=== PATIENT | male | born 1975 | race Caucasian/White ===

== ENCOUNTER → 2016-07-08 | Outpatient (REF) | payer OTHER ==
[2016-07-09 14:26] LABS: HIV SCRN NEGATIVE (NEGATIVE); HIV SCRN1 NEGATIVE (NEGATIVE)
[2016-07-09 14:27] LABS: CONTROL LINE INT CTR LINE PRESENT
== END ==
LOC: M SFHCPLAZ 13:17
PROVIDERS: ATTEND Family Medicine
DX: Z72.51 High risk heterosexual behavior (principal)

== ENCOUNTER → 2016-09-13 | Day surgery (SDC) | payer BC, OTHER ==
[~2016-09-13] VITALS: Ht 185.4 cm; Wt 113.4 kg
[~2016-09-13] MED LIST: BUPIVACAINE HCL 0.25% 30 ML VIAL As Ordered ONE; LIDOCAINE 1% SDV INJ 30 ML VIAL As Ordered ONE; LIDOCAINE 2% INJ 100 MG/5 ML SDV (FOR ANES.) As Ordered ONE; LR 1,000 ML IV ONE; LR 1,000 ML IV SCH; METOCLOPRAMIDE INJ 10MG/2ML VIAL (J2765) IV PRN; MIDAZOLAM INJ 2 MG/2 ML VIAL (J2250) As Ordered ONE; MOBI15TA PO; NORCO, ANEXSIA 5/325MG TABLET (HYDROcodone/ACETAMINOPHEN) PO PRN; ONDANSETRON 4MG/2ML VIAL (J2405) IV PRN; PANT1POW XX; PROPOFOL 200 MG/20 ML VIAL As Ordered ONE; ROCURONIUM BROMIDE 50 MG/5 ML VIAL As Ordered ONE; dexameTHASONE 4 MG/ML 1ML VIAL (J1100) As Ordered ONE; fentaNYL 100 MCG/2 ML INJECTION (J3010) As Ordered ONE; fentaNYL 100 MCG/2 ML INJECTION (J3010) IV PRN
[2016-09-13] MEDS: PERCOCET 5MG/325MG TAB PO PRN ×2 (13:55→14:25)
[2016-09-13 16:05] VITALS: BP 177/90
--- NOTE | 2016-09-15 14:24 | RO ---
DATE OF PROCEDURE: 09/13/2016 PREOPERATIVE DIAGNOSIS: Left inguinal hernia. POSTOPERATIVE DIAGNOSIS: Left inguinal hernia. PROCEDURE PERFORMED: Left inguinal herniorrhaphy with ultra Pro mesh. SURGEON: Dr. Naga Calzada GRIP WRAPPER: Pritesh Mendez MS III ANESTHESIA: General. INDICATIONS FOR PROCEDURE: The patient is a 41-year-old man who has noticed a small bulge in the left inguinal area with some discomfort. He is now for a left inguinal herniorrhaphy. OPERATIVE PROCEDURE: The patient was placed under general endotracheal anesthesia. The patient's lower abdomen, groins and genitalia were prepped and draped in a sterile fashion. An approximately 10 cm oblique left lower quadrant skin incision was made over the course of the inguinal canal. The incision was deepened through the subcutaneous tissues. The external oblique was exposed and then opened in the direction of its fibers into the external ring. The spermatic cord was elevated at the pubic tubercle with a [place] drain. Dissection revealed a moderately large direct hernia just medial to the internal ring. A bulge of fat about 3-4 cm in diameter protruded through this hernia. He was also found to have a protrusion of some preperitoneal fat along the spermatic cord. The preperitoneal fat was dissected free from the cord and ligated at its neck and excised. The direct hernia bulge was reduced beneath the fascia and the defect was closed with several interrupted simple sutures of #2-0 Ethibond. A 6 x 11 cm piece of ultra Pro mesh was then selected. This was trimmed to fit over the inguinal floor. The lateral border was sutured with a #3-0 Prolene to the shelving edge of the inguinal ligament. Medially, the mesh was tacked down with interrupted simple sutures of #3-0 Vicryl. The tails of the mesh were overlapped lateral to the spermatic cord and sutured with #3-0 Vicryl. This appeared to give a nice reconstruction of the inguinal floor. Approximately 10 mL of 0.25% Marcaine were infiltrated into the inguinal floor. The external oblique was closed with a running #0 Vicryl. The subcutaneous tissues were closed with chromic. Additional 0.25% Marcaine was infiltrated along the skin edges. The skin edges were then approximated with a running subcuticular #4-0 Vicryl and Steri-Strips. A light dressing was applied. The patient was awakened in the operating room, extubated and moved to the recovery room in stable condition. CRISELDA
== END | disposition home or self-care (01) ==
LOC: M SDC 08:48
PROVIDERS: ATTEND Surgery
DX: K40.90 Unilateral inguinal hernia, without obstruction or gangrene, not specified as recurrent (principal); K21.9 Gastro-esophageal reflux disease without esophagitis; F17.228 Nicotine dependence, chewing tobacco, with other nicotine-induced disorders; G47.33 Obstructive sleep apnea (adult) (pediatric); M15.0 Primary generalized (osteo)arthritis; A60.00 Herpesviral infection of urogenital system, unspecified; Z88.5 Allergy status to narcotic agent; Z79.899 Other long term (current) drug therapy
CPT/HCPCS: 49505; 88302; C1781; J1100; J2250; J3010

== ENCOUNTER → 2017-07-01 | Outpatient (REF) | payer OTHER ==
[2017-07-01 14:14] LABS: HEMATOCRIT 48.2 % (42.0-52.0); MEAN CORPUSCULAR HGB CONC 33.2 g/dl (32.0-36.5); MEAN CORPUSCULAR VOLUME 90.4 fl (80.0-96.0); PLATELET COUNT, AUTOMATED 263 10^3/uL (150-450); RED BLOOD COUNT 5.33 10^6/uL (4.30-6.10); RED CELL DISTRIBUTION WIDTH 12.5 % (11.5-14.5); WHITE BLOOD COUNT 7.3 10^3/uL (4.0-10.0)
[2017-07-01 14:21] LABS: ALBUMIN 4.2 GM/DL (3.2-5.2); ALBUMIN/GLOBULIN RATIO 1.45 (1.00-1.93); ALKALINE PHOSPHATASE 94 U/L (45-117); ALT/SGPT 56 U/L (12-78); ANION GAP 7 MEQ/L (8-16); AST/SGOT 25 U/L (7-37); BILIRUBIN,TOTAL 0.6 MG/DL (0.2-1.0); BLOOD UREA NITROGEN 16 MG/DL (7-18); CALCIUM LEVEL 8.9 MG/DL (8.5-10.1); CARBON DIOXIDE LEVEL 31 MEQ/L (21-32); CHLORIDE LEVEL 107 MEQ/L (98-107); CHOLESTEROL LEVEL 176 MG/DL (<200); CHOLESTEROL RISK RATIO 5.677 (<5); CREATININE FOR GFR 0.98 MG/DL (0.70-1.30); GLOMERULAR FILTRATION RATE > 60.0 (>60); GLUCOSE, FASTING 83 MG/DL (70-100); HDL CHOLESTEROL 31 MG/DL (>40); NON-HDL-C 145 MG/DL; POTASSIUM SERUM 4.3 MEQ/L (3.5-5.1); SODIUM LEVEL 145 MEQ/L (136-145); TOTAL PROTEIN 7.1 GM/DL (6.4-8.2); TRIGLYCERIDES LEVEL 200 MG/DL (<150)
== END ==
LOC: M SFHCPLAZ 13:52
DX: K21.9 Gastro-esophageal reflux disease without esophagitis (principal); G47.33 Obstructive sleep apnea (adult) (pediatric); E78.6 Lipoprotein deficiency

== ENCOUNTER → 2017-08-01 | Outpatient (CLI) | payer BC, OTHER | LOC: M LRY 11:42 | DX: R05 Cough (principal) | CPT/HCPCS: 71046 ==

== ENCOUNTER → 2017-08-01 | Outpatient (CLI) | payer BC, OTHER | LOC: M LRY 11:36 | DX: M25.511 Pain in right shoulder (principal) | CPT/HCPCS: 73030 ==

== ENCOUNTER 2017-10-04 17:20 | Emergency (ER) | payer BC, OTHER ==
[2017-10-04] MEDS ORDERED: NORCO, ANEXSIA 5/325MG TABLET (HYDROcodone/ACETAMINOPHEN) PO (19:30)
[2017-10-04] MEDS: IBUPROFEN 600 MG TAB PO (19:30)
== END 2017-10-04 19:41 | disposition home or self-care (01) ==
LOC: M ED 17:20
DX: S93.401A Sprain of unspecified ligament of right ankle, initial encounter (principal); S90.31XA Contusion of right foot, initial encounter; W22.8XXA Striking against or struck by other objects, initial encounter; Y92.096 Garden or yard of other non-institutional residence as the place of occurrence of the external cause; K21.9 Gastro-esophageal reflux disease without esophagitis; G47.33 Obstructive sleep apnea (adult) (pediatric); Z87.891 Personal history of nicotine dependence; Z88.5 Allergy status to narcotic agent; Z79.899 Other long term (current) drug therapy
CPT/HCPCS: 73610

== ENCOUNTER → 2018-02-02 | Outpatient (REF) | payer OTHER ==
[2018-02-02 13:56] LABS: FOLATE 12.9 NG/ML
== END ==
LOC: M SFHCPLAZ 11:30
DX: R20.2 Paresthesia of skin (principal)

== ENCOUNTER → 2018-10-12 | Outpatient (REF) | payer OTHER ==
[~2018-10-12] MED LIST changes: -BUPIVACAINE HCL 0.25% 30 ML VIAL As Ordered ONE; -LIDOCAINE 1% SDV INJ 30 ML VIAL As Ordered ONE; -LIDOCAINE 2% INJ 100 MG/5 ML SDV (FOR ANES.) As Ordered ONE; -LR 1,000 ML IV ONE; -LR 1,000 ML IV SCH; -METOCLOPRAMIDE INJ 10MG/2ML VIAL (J2765) IV PRN; -MIDAZOLAM INJ 2 MG/2 ML VIAL (J2250) As Ordered ONE; +NORC1TAB7 PO; -NORCO, ANEXSIA 5/325MG TABLET (HYDROcodone/ACETAMINOPHEN) PO PRN; -ONDANSETRON 4MG/2ML VIAL (J2405) IV PRN; -PROPOFOL 200 MG/20 ML VIAL As Ordered ONE; -ROCURONIUM BROMIDE 50 MG/5 ML VIAL As Ordered ONE; -dexameTHASONE 4 MG/ML 1ML VIAL (J1100) As Ordered ONE; -fentaNYL 100 MCG/2 ML INJECTION (J3010) As Ordered ONE; -fentaNYL 100 MCG/2 ML INJECTION (J3010) IV PRN
[2018-10-12 16:23] LABS: HEMATOCRIT 48.4 % (42.0-52.0); MEAN CORPUSCULAR HEMOGLOBIN 30.9 pg (27.0-33.0); MEAN CORPUSCULAR HGB CONC 33.1 g/dl (32.0-36.5); MEAN CORPUSCULAR VOLUME 93.6 fl (80.0-96.0); PLATELET COUNT, AUTOMATED 282 10^3/uL (150-450); RED BLOOD COUNT 5.17 10^6/uL (4.30-6.10); WHITE BLOOD COUNT 8.4 10^3/uL (4.0-10.0)
[2018-10-12 16:31] LABS: ALT/SGPT 72 U/L (12-78); BILIRUBIN,TOTAL 0.5 MG/DL (0.2-1.0); BLOOD UREA NITROGEN 15 MG/DL (7-18); CARBON DIOXIDE LEVEL 29 MEQ/L (21-32); CHLORIDE LEVEL 107 MEQ/L (98-107); CHOLESTEROL LEVEL 197 MG/DL (<200); CHOLESTEROL RISK RATIO 6.566 (<5); GLOMERULAR FILTRATION RATE > 60.0 (>60); GLUCOSE, FASTING 75 MG/DL (70-100); HDL CHOLESTEROL 30 MG/DL (>40); LDL CHOLESTEROL 103 MG/DL (<100); NON-HDL-C 167 MG/DL; POTASSIUM SERUM 4.1 MEQ/L (3.5-5.1); SODIUM LEVEL 142 MEQ/L (136-145); TOTAL PROTEIN 7.1 GM/DL (6.4-8.2); TRIGLYCERIDES LEVEL 321 MG/DL (<150)
== END ==
LOC: M SFHCPLAZ 12:43
PROVIDERS: ATTEND Family Medicine
DX: E78.6 Lipoprotein deficiency (principal); E78.1 Pure hyperglyceridemia; G47.33 Obstructive sleep apnea (adult) (pediatric); K21.9 Gastro-esophageal reflux disease without esophagitis

== ENCOUNTER → 2019-05-07 | Outpatient (CLI) | payer BC, OTHER ==
--- NOTE | 2019-05-07 11:48 | REP ---
HIGH-RESOLUTION SCROTAL SONOGRAPHY: HISTORY: Testicular mass. FINDINGS: Testicular parenchyma is homogeneous bilaterally. There is no sonographic evidence of intratesticular mass lesion. Right testis measures 5.0 x 2.5 x 3.0 cm. Left testicular dimensions are 4.9 x 2.3 x 3.0 cm. There is a 0.4 cm cyst in the head of the epididymis on the right which is felt to correspond with the area of abnormal palpation, according to the patient. There is no evidence of hydrocele on the right. A small hydrocele is noted on the left. Testicular Doppler flow is normal bilaterally. Resistive indices are 0.65 on the right and 0.63 on the left. IMPRESSION: Small cyst in the head of the right epididymis. Otherwise normal scrotal sonography. There is no ultrasound evidence of intratesticular mass. Electronically Signed by Sohan Kulkarni MD 05/07/2019 03:52 P
== END ==
LOC: M RAD 10:38
PROVIDERS: ATTEND Student in an Organized Health Care Education/Training Program
DX: N50.89 Other specified disorders of the male genital organs (principal); N50.3 Cyst of epididymis

== ENCOUNTER → 2019-11-18 | Outpatient (CLI) | payer BC, OTHER ==
--- NOTE | 2019-11-18 15:39 | REPPI ---
RIGHT CALCANEUS: Two views of the right calcaneus performed. No fracture or dislocation is seen. There is a posterior calcaneal spur having a length of approximately 7 mm. There is an inferior calcaneal spur having a length of about 9 mm. No other abnormalities are seen. IMPRESSION: Spurring of posterior and inferior calcaneus as discussed above. Electronically Signed by Familia Obrien MD 11/21/2019 11:44 P
--- NOTE | 2019-11-18 15:40 | REPPI ---
REASON: Foot pain. FINDINGS: The joint spaces are symmetric and relatively well maintained. There is no evidence of acute fracture or destructive osseous lesion. IMPRESSION: Negative. There are plantar and retrocalcaneal heel spurs. Electronically Signed by Tomas Roblero DO 11/18/2019 04:15 P
== END ==
LOC: M PLAIMG 12:28
PROVIDERS: ATTEND Family Medicine
DX: M79.671 Pain in right foot (principal)

== ENCOUNTER → 2020-04-04 | Outpatient (REF) | payer OTHER ==
[2020-04-04 17:48] LABS: BASO % 0.4 % (0.0-1.0); EOS # 0.6 10^3/uL (0.0-0.5); EOS % 5.4 % (0.0-3.0); HEMATOCRIT 49.8 % (42.0-52.0); HEMOGLOBIN 16.9 g/dl (13.5-17.5); LYMPH # 3.1 10^3/uL (1.5-5.0); MEAN CORPUSCULAR HEMOGLOBIN 30.5 pg (27.0-33.0); MEAN CORPUSCULAR HGB CONC 33.9 g/dl (32.0-36.5); MEAN CORPUSCULAR VOLUME 89.9 fl (80.0-96.0); MONO # 1.1 10^3/uL (0.0-0.8); MONO % 9.7 % (0.0-5.0); NEUTROPHILS # 6.5 10^3/uL (1.5-8.5); NEUTROPHILS % 57.1 % (36.0-66.0); PLATELET COUNT, AUTOMATED 298 10^3/uL (150-450); RED BLOOD COUNT 5.54 10^6/uL (4.30-6.10); WHITE BLOOD COUNT 11.4 10^3/uL (4.0-10.0)
[2020-04-04 18:27] LABS: ALBUMIN 3.9 GM/DL (3.2-5.2); ALT/SGPT 87 U/L (12-78); BILIRUBIN,TOTAL 0.6 MG/DL (0.2-1.0); BLOOD UREA NITROGEN 12 MG/DL (7-18); C REACTIVE PROTEIN QUANTITATIV 0.79 MG/DL (0.00-0.30); CARBON DIOXIDE LEVEL 25 MEQ/L (21-32); CHLORIDE LEVEL 108 MEQ/L (98-107); CREATININE FOR GFR 0.97 MG/DL (0.70-1.30); GLOMERULAR FILTRATION RATE > 60.0 (>60); GLUCOSE, FASTING 100 MG/DL (70-100); LIPASE 91 U/L (73-393); POTASSIUM SERUM 3.6 MEQ/L (3.5-5.1); SODIUM LEVEL 140 MEQ/L (136-145); TOTAL PROTEIN 7.3 GM/DL (6.4-8.2)
[2020-04-04 18:52] LABS: ERYTHROCYTE SEDIMENTATION RATE 3 mm/hr (0-15)
== END ==
LOC: M SFHCPLAZ 14:42
PROVIDERS: ATTEND Physician Assistant
DX: R10.84 Generalized abdominal pain (principal); R19.7 Diarrhea, unspecified; R14.0 Abdominal distension (gaseous)

== ENCOUNTER → 2020-04-04 | Outpatient (REF) | payer OTHER | LOC: M SFHCPLAZ 15:19 | PROVIDERS: ATTEND Physician Assistant | DX: R10.84 Generalized abdominal pain (principal); R19.7 Diarrhea, unspecified; R14.0 Abdominal distension (gaseous) ==

== ENCOUNTER → 2020-04-05 | Outpatient (CLI) | payer BC, OTHER ==
[~2020-04-05] MED LIST changes: +GASTROGRAFIN SOLUTION 30ML (Q9963) As Ordered ONE; +ISOVUE-370 76% 100ML VIAL As Ordered ONE
--- NOTE | 2020-04-05 16:46 | REP ---
INDICATION: GENERALIZED ABD PAIN, DIARRHEA. COMPARISON: 09/30/2005 TECHNIQUE: 100 cc Isovue 370 with oral bowel preparatory contrast administration FINDINGS: Curvilinear densities are seen in the antral basal segment of the left lower lobe likely subsegmental atelectatic changes. The liver and spleen are within normal limits. There is cholelithiasis. The pancreas, adrenal glands, and kidneys are within normal limits. The abdominal aorta and para-aortic regions are within normal limits. The bowel loops and the mesenteries are within normal limits. There is no free fluid or free air. There is no mass or adenopathy. The osseous structures are stable and intact. IMPRESSION: There is cholelithiasis. The examination is otherwise unremarkable and essentially unchanged from the prior exam. <Electronically signed by Tomas Roblero > 04/05/20 [id number]
== END ==
LOC: M RAD 14:23
PROVIDERS: ATTEND Physician Assistant
DX: R10.9 Unspecified abdominal pain (principal); R19.7 Diarrhea, unspecified

== ENCOUNTER 2020-04-16 18:00 | Emergency (ER) | payer BC, OTHER ==
[~2020-04-16] VITALS: Ht 185.4 cm; Wt 126.5 kg
[~2020-04-16 18:00] MED LIST changes: -GASTROGRAFIN SOLUTION 30ML (Q9963) As Ordered ONE; -ISOVUE-370 76% 100ML VIAL As Ordered ONE
[2020-04-16] MEDS ORDERED: PANT40TA29 PO (18:07)
[2020-04-16] MEDS ORDERED: ONDANSETRON 4MG/2ML VIAL IV ONE (18:30)
[2020-04-16] MEDS ORDERED: fentaNYL 100 MCG/2 ML INJECTION (J3010) IV ONE (18:30)
[2020-04-16] MEDS ORDERED: NS 1,000 ML IV ONE (18:30)
[2020-04-16 18:44] LABS: BASO # 0.1 10^3/uL (0.0-0.2); BASO % 0.5 % (0.0-1.0); EOS # 0.1 10^3/uL (0.0-0.5); EOS % 0.9 % (0.0-3.0); HEMATOCRIT 48.5 % (42.0-52.0); HEMOGLOBIN 16.3 g/dl (13.5-17.5); LYMPH # 3.1 10^3/uL (1.5-5.0); LYMPH % 25.7 % (24.0-44.0); MEAN CORPUSCULAR HEMOGLOBIN 29.4 pg (27.0-33.0); MEAN CORPUSCULAR HGB CONC 33.6 g/dl (32.0-36.5); MEAN CORPUSCULAR VOLUME 87.5 fl (80.0-96.0); MONO # 0.9 10^3/uL (0.0-0.8); MONO % 7.2 % (0.0-5.0); NEUTROPHILS # 7.9 10^3/uL (1.5-8.5); NEUTROPHILS % 65.3 % (36.0-66.0); PLATELET COUNT, AUTOMATED 297 10^3/uL (150-450); RED BLOOD COUNT 5.54 10^6/uL (4.30-6.10); WHITE BLOOD COUNT 12.1 10^3/uL (4.0-10.0)
[2020-04-16 19:03] LABS: ALBUMIN 3.9 GM/DL (3.2-5.2); ALT/SGPT 90 U/L (12-78); BILIRUBIN,DIRECT 0.1 MG/DL (0.0-0.2); BILIRUBIN,TOTAL 0.4 MG/DL (0.2-1.0); BLOOD UREA NITROGEN 8 MG/DL (7-18); CALCIUM LEVEL 9.2 MG/DL (8.5-10.1); CARBON DIOXIDE LEVEL 28 MEQ/L (21-32); CHLORIDE LEVEL 108 MEQ/L (98-107); CK-MB VALUE MASS 3.6 NG/ML (<3.6); CPK CREATINE PHOSPHOKINASE 264 U/L (39-308); CREATININE FOR GFR 0.94 MG/DL (0.70-1.30); GLOMERULAR FILTRATION RATE > 60.0 (>60); GLUCOSE, FASTING 114 MG/DL (70-100); LIPASE 86 U/L (73-393); MB/CK RELATIVE INDEX 1.36 (< OR =4); POTASSIUM SERUM 3.9 MEQ/L (3.5-5.1); SODIUM LEVEL 140 MEQ/L (136-145); TOTAL PROTEIN 7.4 GM/DL (6.4-8.2); TROPONIN I < 0.02 NG/ML (< 0.10)
--- NOTE | 2020-04-16 19:30 | REPVR ---
PROCEDURE INFORMATION: Exam: US Abdomen, Limited; Right Upper Quadrant Exam date and time: 04/16/2020 7:04 PM Age: 44 years old Clinical indication: Abdominal pain; Acute; Additional info: Ruq pain TECHNIQUE: Imaging protocol: US abdomen. Real time ultrasound with image documentation. Limited exam focused on the right upper quadrant. COMPARISON: CT ABD PELVIS WITH CONTRAST 04/05/2020 4:03 PM FINDINGS: Liver: The liver is diffusely echogenic relative to the right kidney, findings consistent with steatosis. Gallbladder: No definitive gallstone demonstrated however there is suggestion of a calculus on 1 image. Common bile duct: The common bile duct measures 5.5 mm. No mass or choledocholithiasis. Pancreas: Pancreas obscured by bowel gas. Right kidney: Right kidney measures 11.7 x 5.7 x 5.7 cm. IMPRESSION: 1. Hepatic steatosis. 2. No definitive gallstone demonstrated however there is suggestion of a calculus on 1 image. 3. Nonvisualized pancreas. Electronically signed by: Adolfo Melton On 04/16/2020 19:29:31 PM
[2020-04-16] MEDS ORDERED: NORC1TAB7 PO (19:48)
[2020-04-16 20:21] VITALS: BP 120/65
--- NOTE | 2020-04-17 05:34 | ECGEPIP ---
[facility] - ED Test Date: 2020-04-16 Pat Name: CHLOE STORM Department: Room: - Gender: Male Dining Service Inspector: rebecca : 1975 Requested By: TAE LOPEZ Order Number: [id number] Reading MD: Chandana Cheung Measurements Intervals [place] Rate: 56 P: 21 ME: 150 QRS: 25 QRSD: 84 T: 16 QT: 430 QTc: 417 Interpretive Statements SINUS BRADYCARDIA INCOMPLETE RIGHT BUNDLE BRANCH BLOCK NO PRIORS FOR COMPARISON Electronically Signed on 04-17-2020 5:33:54 EST by Chandana Cheung
== END 2020-04-16 20:25 | disposition home or self-care (01) ==
LOC: M ED 18:00
DX: K80.50 Calculus of bile duct without cholangitis or cholecystitis without obstruction (principal); R00.1 Bradycardia, unspecified; I45.19 Other right bundle-branch block; K21.9 Gastro-esophageal reflux disease without esophagitis; K76.0 Fatty (change of) liver, not elsewhere classified; Z88.5 Allergy status to narcotic agent
CPT/HCPCS: 76705; 80048; 80076; 82550; 82553; 83690; 84484; 85025; 93005; 93041; 96361; 96374; 96375; 99284; J2405; J3010

== ENCOUNTER 2020-05-02 08:34 | Emergency (ER) | payer OTHER, BC ==
[~2020-05-02] VITALS: Ht 185.4 cm; Wt 129.2 kg
[~2020-05-02 08:34] MED LIST changes: +PANT40TA29 PO
[2020-05-02] MEDS ORDERED: ONDA4TAB6 PO (08:42)
[2020-05-02] MEDS ORDERED: HYDR-3713 PO (08:42)
[2020-05-02] MEDS ORDERED: MELO15TA28 PO (08:42)
[2020-05-02] MEDS ORDERED: BOOSTRIX/ADACEL VACCINE (DIPHTH/PERTUSS/ACELL/TETANUS) 0.5ML SYR IM ONE (09:15)
[2020-05-02] MEDS ORDERED: LIDOCAINE 1% MDV 20ML VIAL SC ONE (10:45)
[2020-05-02] MEDS ORDERED: AUGM875T28 PO (11:13)
[2020-05-02 11:39] VITALS: BP 139/86
== END 2020-05-02 11:40 | disposition home or self-care (01) ==
LOC: M ED 08:34
DX: S61.051A Open bite of right thumb without damage to nail, initial encounter (principal); W54.0XXA Bitten by dog, initial encounter; Y92.89 Other specified places as the place of occurrence of the external cause; Y93.9 Activity, unspecified; Y99.0 Civilian activity done for income or pay; K80.80 Other cholelithiasis without obstruction; K21.9 Gastro-esophageal reflux disease without esophagitis; F17.220 Nicotine dependence, chewing tobacco, uncomplicated

== ENCOUNTER → 2020-06-15 | Outpatient (CLI) | payer OTHER, BC ==
[~2020-06-15] MED LIST changes: +AUGM875T28 PO; +HYDR-3713 PO; +MELO15TA28 PO; +ONDA4TAB6 PO; +VALA1TAB5 PO
== END ==
LOC: M LABSMTC 09:43
PROVIDERS: ATTEND Anesthesiology
DX: Z01.818 Encounter for other preprocedural examination (principal)

== ENCOUNTER 2020-06-20 08:10 | Day surgery (SDC) | payer BC, OTHER ==
[~2020-06-20] VITALS: Ht 185.4 cm; Wt 121.5 kg
[~2020-06-20 08:10] MED LIST changes: +LR 1,000 ML IV ONE
--- OUTSIDE RECORDS SUMMARY | 2020-06-20 09:08 | CCD | Continuity of Care Document ---
Author Author Randall COSBY M.D. Organization Unknown Address [address] [place] [address] Phone [phone] Care Team Providers Care Advertising Internship Name Role Phone Malick Baig MD [facility] [phone] Problems Active Problems Provider Date Gastroesophageal reflux disease Negrito Geronimo Ons et: 09/22/2014 Social History Type Date Description Comments Sex Unknown Tobacco Use Start: Unknown End: Unknown Patient is a former smoker Tobacco Use Start: Unknown Chews tobacco Allergies, Adverse Reactions, Alerts Active Allergies Reaction Severity Comments Date Morphine Increased heart rate, Rash 0 09/22/2014 Medications Active Medications SIG Qnty Indications Ordering Provide r Date Gaviscon Extra Strength 160-105mg Chewtabs 1 tab by mouth four times a day before meals,and at bedtime 360u celestine Cosby M.D. 06/08/2020 Pantoprazole Sodium 40mg Tablets Maite Cifuentes RPA-C Meloxicam 15mg Tablets Maite Subramanian RPA-C Fluticasone Propionate 50mcg/Act Suspension Maite Subramanian RPA-C Valacyclovir HCL 1gm Tablets Take Two Tablets By Mouth Every 12 Hours AT Onset Of Symptoms For One Day Unknown Ondansetron 4mg Tablets Dispers Dissolve One Tablet On Tongue Every 8 Hours as Needed Unk nown Immunizations Description No Information Available Vital Signs Date Vital Result Comment 06/08/2020 2:28pm Height 73 inches 6'1" Weight 279.00 lb BP Systolic 129 mmHg BP Diastolic 79 mmHg Heart Rate 61 /min BMI (Body Mass Index) 36.8 kg/m2 Weight 126.554 kg Body Temperature 96.6 F 09/22/2014 1:23pm Height 73 inches 6'1" Weight 258.00 lb BP Systolic 110 mmHg BP Diastolic 78 mmHg Heart Rate 66 /min BMI (Body Mass Index) 34.0 kg/m2 Weight 117.029 kg Results Description No Information Available Procedures Description No Information Available Medical Devices Description No Information Available Encounters Type Date Location Provider Dx Diagnosis Office Visit 06/08/2020 2:30p Main Office Jonathan Cosby M.D. K 21.9 Gastro-esophageal reflux disease without esophagitis Assessments Date Code Description Provider 06/08/2020 K21.9 Gastroesophageal reflux disease Jonathan Cosby M.D. Plan of Treatment 06/08/2020 - Jonathan Cosby M.D.* K21.9 Gastroesophageal reflux disease* Comments:* 44 yo wm who has chronic heartburn symptoms. Scopes were negative for intestinal metaplasia in 2019. No c/o abdominal pain, weight loss, change in bowel habits, or rectal bleeding. No family h/o colon cancer. No h/o chest pain, or sob. No dysphagia. Plan:1. Maintain meds.2. Scope at his next colonoscopy + egd. Functional Status Description No Information Available Mental Status Description No Information Available Referrals Description No Information Available
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
--- OUTSIDE RECORDS SUMMARY | 2020-06-20 09:09 | CCD | Continuity of Care Document ---
Author Author Randall COSBY M.D. Organization Unknown Address [address] [place] [address] Phone [phone] Care Team Providers Care Tracer Clerk Name Role Phone Malick Baig MD [facility] [phone] Problems Active Problems Provider Date Gastroesophageal reflux [...] Medical Devices Description No Information Available Encounters Description No Information Available Assessments Date Code Description Provider 06/08/2020 K21.9 [...]
--- OUTSIDE RECORDS SUMMARY | 2020-06-20 09:10 | CCD ---
Demographics Address [address] [place] [address] Preferred Language Unknown Marital Status Unknown Faith Affiliation Unknown Race White Ethnic Group Not or Author Author [facility] Organization [facility] Address Unknown Phone Unavailable Support Name Relationship Address Phone Kathie Calderon E[address] [place], [place] [phone] Bruce Dumas PRS Unknown Unavailable CHLOE CALDERON GUAR [address] [place] [address] Care Team Providers Care Statistics Manager Name Role Phone Malick Baig Unavailable PROBLEMS Type Condition ICD9-CM Code FPP45-ZO Code Onset Dates Condition S tatus SNOMED Code Notes 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 044404867 Problem Esophageal reflux K21.9 Active 484063010 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 83518605 3 Problem Obesity, unspecified E66.9 Active 788272057 Problem Allergic rhinitis, unspecified allergic rhinitis type J30.9 Active 92660838 Problem Chewing tobacco nicotine dependence without complication F17.220 Active 06554549 Problem Hypertriglyceridemia E78.1 Active 654703157 Problem Localized osteoarthritis of knee M17.9 Active 074710754 Problem 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 Active 850991080 Problem BONNIE (obstructive sleep apnea) G47.33 Active 78 039822 Problem Deviated nasal septum J34.2 Active 470110493 Problem Calculus of gallbladder without cholecystitis wi thout obstruction K80.20 Active 77121229 Problem Obstructive sleep apnea G47.33 Active 47871276 Problem BMI 34.0-34.9,adult Z68.34 Active 483859458 Problem Genital herpes in men A60.02 Active 14301629 Problem Tingling of left upper extremity R20.2 Active 710945086 Problem GERD with esophagitis K21.0 Active 600620474 ALLERGIES Allergen (clinical drug ingredient) Drug/Non Drug Allergy do cumented on EMR Reaction Allergy Type Onset Date Status morphine Morphine Sulfate([facility] Code:[address]-52) hives, tachyarrythmia Drug Allergy Active ENCOUNTERS from 1975 to 2020-04-27 Encounter Location Date Provider Diagnosis [facility] [address] [place] [id number] Apr, Malick Baig IMMUNIZATIONS Vaccine Route Administration Date Status TDAP Unknown Apr 27, 2012 Administered Influenza (6mo & up) Fluzone Unknown Feb 16, 2016 Oth ers SOCIAL HISTORY Sex Assigned At : Social History Observation Description Sex Assigned At Unknown Audit Question Answer Notes Total Score: 7 Interpretation: Alcohol Education Language: Question Answer Notes Languages spoken: Mauritian Restorationism: Question Answer Notes Restorationism 33 None Sexual Hx: Question Answer Notes [...] REASON FOR REFERRAL No Information VITAL SIGNS No information MEDICATIONS Medication SIG (Take, Route, Frequency, Duration) [...] Information RESULTS No Results REASON FOR VISIT referral to Dr Calzada MEDICAL (GENERAL) HISTORY Type Description Date Medical [...] ( 12/2007) Medical History TM stress test (Dumas) 06/20/10 Medical History Echocardiogram (Piter) 06/20/10 Surgical History tonsillectomy Surgical History R inguinal herniorraphy (David) Surgical History colonscopy (Alea) 01/2006 Surgical History reconstrustuction of L leg (three surger ies) Dr. Phelan 12/2007 Surgical History EGD (Alea) 08/2009 Surgical History EGD (Alea) - essentially normal 11/03 015 Surgical History hernia repair 09/2016 Hospitalization History no medical hospitalizations Goals Section No Information Health Concerns No Information MEDICAL EQUIPMENT No Information MENTAL STATUS No Information FUNCTIONAL STATUS No Information ASSESSMENTS No Information PLAN OF TREATMENT Next Appt Details Provider Name:Malick Baig, 2020-06-05 2 02:15:00 PM, [address] [place], [address], Insurance Providers Payer Name Payer Address Payer Phone Insured Name Patient Relati onship to Insured Coverage Start Date Coverage End Date [facility] [address] [facility] [id number] CHLOE CALDERON self
--- OUTSIDE RECORDS SUMMARY | 2020-06-20 09:10 | CCD | Continuity of Care Document ---
Author Author Randall SANTANA M.D. Organization Unknown Address [address] [facility] [facility], [address] [place] [address] Phone [phone] Care Team Providers Care Caramel Maker Name Role Phone Malick Baig M.D. AUTM [phone] Problems Active Problems Provider Date Obstructive sleep apnea syndrome DAISY Venegas Onset: 12/15/2017 Social History Type Date Description Comments Sex Unknown Smokeless Tobacco Never Used Smokeless Tobacco ETOH Use consumes 2 six packs per week Recreational Drug Use Denies Drug Use Tobacco Use Reviewed: 12/21/18 Chewing Tobacco Chews every d ay. Tobacco Use Start: Unknown End: Unknown Patient is a former smoker Pt can not remember the year or age he was when he started smoking but only smoked for 1 or 2 years. 1 ppd quit 1997 Smoking Status Reviewed: 03/29/20 Patient is a former smoker Pt can not remember the year or age he was when he started smoking but only smoked for 1 or 2 years. 1 ppd quit 1997 Allergies, Adverse Reactions, Alerts Active Allergies Reaction Severity Comments Date Morphine 09/12/2015 Medications Active Medications SIG Qnty Indications Ordering Provide r Date Bacitracin 500Unit/GM Ointment Apply To Nose Twice Daily 15gm J31.0 Kennedy Mcmahon MD 09/12/2015 Pantoprazole Sodium 20mg Tablets D R 1 by mouth twice a day Unknown Meloxicam 15mg Tablets 1 by mouth daily as needed Unknown Cetirizine HCL 10mg Tablets 1 by mouth every day Unknown Fluticasone Propionate 50mcg/Act Suspension 2 sprays to each nostril daily Unknown CPAP | 10cm Mar[place] Unknown Valtrex 500mg Tablets 1 by mouth every day prn Unknown Zofran 4mg Tablets 1 tab by mouth take only when having nausea.. Unknown Immunizations Description No Information Available Vital Signs Date Vital Result Comment 05/10/2020 9:41am BP Systolic 160 mmHg BP Diastolic 84 mmHg Height 73 inches 6'1" Weight 281.00 lb BMI (Body Mass Index) 37.1 kg/m2 [place] Body Weight 184 lb Weight 127.462 kg BSA (Body Surface Area) 2.49 m2 03/29/2020 2:10pm BP Systolic 132 mmHg BP Diastolic 76 mmHg Heart Rate 67 /min O2 % BldC Oximetry 96 % Body Temperature 97.3 F Height 73 inches 6'1" Weight 285.00 lb BMI (Body Mass Index) 37.6 kg/m2 [place] Body Weight 184 lb Weight 129.276 kg BSA (Body Surface Area) 2.50 m2 Results Description No Information Available Procedures Description No Information Available Medical Devices Description No Information Available Encounters Type Date Location Provider Dx Diagnosis Office Visit 03/29/2020 2:30p [facility] Pulmonary/Thoracic DAISY Venegas G47.33 Obstructive sleep apnea (adult) (pediatr ic) Assessments Date Code Description Provider 03/29/2020 G47.33 Obstructive sleep apnea (adult) (pediatric) DAISY Venegas Plan of Treatment Future Appointment(s):* 03/26/2021 2:30 pm - DAISY Venegas at [facility] Pulmonary/Thoracic 03/29/2020 - DAISY Venegas* G47.33 Obstructive sleep apnea (adult) (pediatric) * * New Orders:* CPAP/BIPAP Supply, Ordered: 03/29/20 * Follow up:* Follow up in 1 year with compliance download Functional Status Description No Information Available Mental Status Description No Information Available Referrals Refer to Reason for Referral Status Appt Date Naga Santana M.D. GALLSTONES Created 05/10/2020 [facility] [address] [place], [place] [address] [phone]
--- OUTSIDE RECORDS SUMMARY | 2020-06-20 09:11 | CCD ---
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 18389929 3 Problem Deviated nasal septum J34.2 Active 824199646 Problem Hypertriglyceridemia E78.1 Active 712782291 Problem Localized osteoarthritis of knee M17.9 Active 725183281 Problem GERD with esophagitis K21.0 Active 779241303 Problem Allergic rhinitis, unspecified allergic rhinitis type J30.9 Active 70949011 Problem BONNIE (obstructive sleep apnea) G47.33 Active 78 030043 Problem Obstructive sleep apnea G47.33 Active 64579465 Problem 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 Active 282810665 Problem BMI 34.0-34.9,adult Z68.34 Active 203810737 Problem Genital herpes in men A60.02 Active 57070385 Problem Tingling of left upper extremity R20.2 Active 949444931 ALLERGIES Allergen (clinical drug ingredient) Drug/Non Drug Allergy do cumented on EMR Reaction Allergy Type Onset Date Status morphine Morphine Sulfate([facility] Code:[address]-89) hives, tachyarrythmia Drug Allergy Active ENCOUNTERS from 1977 to 2020-04-05 Encounter Location Date Provider Diagnosis [facility] [address] [place] [address] Apr, Yuliana Reece IMMUNIZATIONS Vaccine Route Administration Date Status TDAP Unknown Apr 27, 2012 Administered Influenza (6mo & up) Fluzone Unknown Feb 16, 2016 Oth ers SOCIAL HISTORY Sex Assigned At : Social History Observation Description Sex Assigned At Unknown Audit Question Answer Notes Total Score: 7 Interpretation: Alcohol Education Language: Question Answer Notes Languages spoken: Azeri Mormon: Question Answer Notes Mormon 35 None Sexual Hx: Question Answer Notes [...] Notes Start Da te End Date Status Zofran ODT 4 MG 1 tablet on the tongue and a llow to dissolve Orally every 8 hrs prn for 10 day(s) Apr, Active Pantoprazole Sodium 40 MG TAKE ONE TABLET BY MOUTH TWICE A DAY for 90 Active Fluticasone Propionate 50 MCG/ACT 1 spray in each nostril Nasall y Once a day Feb, Active Valtrex 1 GM 1 tablet Orally Once a day for 1 Active Voltaren 1 % 2 grams to the top of your r ight foot every 6 hours as needed for 7 day(s) Nov, Active Cetirizine HCl 10 MG 1 tablet Orally Once a day for 30 day(s) Active PROCEDURES No Information RESULTS No Results REASON FOR VISIT Vomiting, diarrhea MEDICAL (GENERAL) HISTORY Type Description Date Medical [...] Information ASSESSMENTS No Information PLAN OF TREATMENT Medication Medication Name Sig Start Date Stop Date Zofran ODT 4 MG 1 tablet on the tongue and a llow to dissolve Orally every 8 hrs prn for 10 day(s) Apr, Insurance Providers Payer Name Payer Address Payer Phone Insured Name Patient Relati onship to Insured Coverage Start Date Coverage End Date [facility] [address] [facility] [id number] [employer] ST[employer] self
--- OUTSIDE RECORDS SUMMARY | 2020-06-20 09:11 | CCD ---
Author Author [facility] Organization 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 51068624 3 Problem Deviated nasal septum J34.2 Active 777477562 Problem Hypertriglyceridemia E78.1 Active 622367077 Problem Localized osteoarthritis of knee M17.9 Active 471900004 Problem GERD with esophagitis K21.0 Active 175955101 Problem Allergic rhinitis, unspecified allergic rhinitis type J30.9 Active 80616631 Problem BONNIE (obstructive sleep apnea) G47.33 Active 78 420276 Problem Obstructive sleep apnea G47.33 Active 91230179 Problem 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 Active 527008056 Problem BMI 34.0-34.9,adult Z68.34 Active 593685052 Problem Genital herpes in men A60.02 Active 89534689 Problem Tingling of left upper extremity R20.2 Active 922146869 ALLERGIES Allergen (clinical drug ingredient) Drug/Non Drug Allergy do cumented on EMR Reaction Allergy Type Onset Date Status morphine Morphine Sulfate([facility] Code:[address]-86) hives, tachyarrythmia Drug Allergy Active ENCOUNTERS from 1977 to 2020-04-08 Encounter Location Date Provider Diagnosis [facility] [address] [place] [address] Apr, Yuliana Reece Generalized abdominal pain R10.84 ; Diar henrry, unspecified type R19.7 ; Gassiness R14.0 and Nausea R11.0 IMMUNIZATIONS Vaccine Route Administration Date Status TDAP Unknown Apr 27, 2012 Administered Influenza (6mo & up) Fluzone Unknown Feb 16, 2016 Oth ers SOCIAL HISTORY Sex Assigned At : Social History Observation Description Sex Assigned At Unknown Audit Question Answer Notes Total Score: 7 Interpretation: Alcohol Education Language: Question Answer Notes Languages spoken: Kenyan Mormon: Question Answer Notes Mormon 35 None [...] FOR REFERRAL No Information VITAL SIGNS Weight 274 lbs Apr, Height 73 in Apr, BMI 36.15 kg/m2 Apr, Heart Rate 67 /min Apr, Respiratory Rate 18 /min Apr, Temperature 96.1 degrees Fahrenheit Apr, Oximetry 97 Apr, Blood pressure systolic 140 mm Hg Apr, Blood pressure diastolic 80 mm Hg Apr, MEDICATIONS Medication SIG (Take, [...] 30 day(s) Active PROCEDURES No Information RESULTS REASON FOR VISIT Abdominal issues MEDICAL (GENERAL) HISTORY Type Description Date Medical [...] Treatment Notes Treatm ent Clinical Notes Apr, Generalized abdominal pain (ICD-10 - R10.84) Will obtain labs, CT and stool cxs. mild diet, Zofran prn. Pt to go to the ED with any severe sxs Apr, Diarrhea, unspecified type (ICD-10 - R19.7) Apr, Gassiness (ICD-10 - R14.0) Apr, Nausea (ICD-10 - R11.0) PLAN OF TREATMENT Medication Medication Name Sig Start Date Stop Date Zofran ODT 4 MG 1 tablet on the tongue and a llow to dissolve Orally every 8 hrs prn for 10 day(s) Apr, Treatment Notes Assessment Notes Clinical Notes Generalized abdominal pain Will obtain labs, CT and st ool cxs. mild diet, Zofran prn. Pt to go to the ED with any severe sxs Treatment Notes Test Name Order Date GASTROINTESTINAL GI PANEL (GIPANEL) 2020-04-08 CT ABD/PEL w/IV & Oral Contrast 2020-04-08 Insurance Providers Payer Name Payer Address Payer Phone Insured Name Patient Relati onship to Insured Coverage Start Date Coverage End Date [facility] [address] [facility] [id number] [employer]E STORM self
--- OUTSIDE RECORDS SUMMARY | 2020-06-20 09:11 | CCD ---
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 57558912 3 Problem Deviated nasal septum J34.2 Active 169029964 Problem Hypertriglyceridemia E78.1 Active 211389991 Problem Localized osteoarthritis of knee M17.9 Active 769951887 Problem GERD with esophagitis K21.0 Active 436135481 Problem Allergic rhinitis, unspecified allergic rhinitis type J30.9 Active 59991550 Problem BONNIE (obstructive sleep apnea) G47.33 Active 78 343929 Problem Obstructive sleep apnea G47.33 Active 76368221 Problem 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 Active 223310433 Problem BMI 34.0-34.9,adult Z68.34 Active 388348378 Problem Genital herpes in men A60.02 Active 01182152 Problem Tingling of left upper extremity R20.2 Active 740464668 ALLERGIES Allergen (clinical drug ingredient) Drug/Non Drug Allergy do cumented on EMR Reaction Allergy Type Onset Date Status morphine Morphine Sulfate([facility] Code:[address]-61) hives, tachyarrythmia Drug Allergy Active ENCOUNTERS from 1977 to 2020-04-10 Encounter Location Date Provider Diagnosis [facility] [address] [address] Apr, Yuliana Reece IMMUNIZATIONS Vaccine Route Administration Date Status TDAP Unknown Apr 27, 2012 Administered Influenza (6mo & up) Fluzone Unknown Feb 16, 2016 Oth ers SOCIAL HISTORY Sex Assigned At : Social History Observation Description Sex Assigned At Unknown Audit Question Answer Notes Total Score: 7 Interpretation: Alcohol Education Language: Question Answer Notes Languages spoken: Greek Hindu: Question Answer Notes Hindu 35 None Sexual Hx: Question Answer Notes [...] Information RESULTS No Results REASON FOR VISIT No Information MEDICAL (GENERAL) HISTORY Type Description Date Medical [...] Insured Coverage Start Date Coverage End Date [facility] [address] [facility] [id number] [employer]E STORM self
--- OUTSIDE RECORDS SUMMARY | 2020-06-20 09:12 | CCD ---
Author Author [facility] Organization [facility] Address Unknown Phone Unavailable Support Name Relationship Address Phone MULLINSTOMASA LEA Next Of Kin [address] 05/[address] [place] [address] [facility] Next Of Kin [address] [place] [address] [facility] [employer] [facility] [employer]SPORTATION Next Of Kin [address] [place] [address] ZAIRE CALDERON Next Of Kin [address] [place] [address] Zaire Calderon ECON [address] [place] [address] Unavailable Kathryn Calderon Unknown Unavailable Care Team Providers Care Stunt Person Name Role Phone Obinna Cosby MD Unavailable Unavailable Obinna Cosby MD Unavailable Unavailable Obinna Cosby MD Unavailable Unavailable Obinna Cosby MD Unavailable Unavailable Obinna Cosby MD Unavailable Unavailable Obinna Cosby MD Unavailable Unavailable Obinna Cosby MD Unavailable Unavailable Obinna Cosby MD Unavailable Unavailable Obinna Cosby MD Unavailable Unavailable Obinna Cosby MD Unavailable Unavailable Obinna Cosby MD Unavailable Unavailable Obinna Cosby MD Unavailable Unavailable Obinna Cosby MD Unavailable Unavailable Obinna Cosby MD Unavailable Unavailable Obinna Cosby MD Unavailable Unavailable Obinna Cosby MD Unavailable Unavailable Obinna Cosby MD Unavailable Unavailable Obinna Cosby MD Unavailable Unavailable Obinna Cosby MD Unavailable Unavailable Obinna Cosby MD Unavailable Unavailable Obinna Cosby MD Unavailable Unavailable Obinna Cosby MD Unavailable Unavailable Obinna Cosby MD Unavailable Unavailable Obinna Cosby MD Unavailable Unavailable Obinna Cosby MD Unavailable Unavailable Obinna Cosby MD Unavailable Unavailable Obinna Cosby MD Unavailable Unavailable Obinna Cosby MD Unavailable Unavailable Obinna Cosby MD Unavailable Unavailable Obinna Cosby MD Unavailable Unavailable Obinna Cosby MD Unavailable Unavailable Obinna Cosby MD Unavailable Unavailable Obinna Cosby MD Unavailable Unavailable Obinna Cosby MD Unavailable Unavailable Obinna Cosby MD Unavailable Unavailable Obinna Cosby MD Unavailable Unavailable Obinna Cosby MD Unavailable Unavailable Obinna Cosby MD Unavailable Unavailable Obinna Cosby MD Unavailable Unavailable Obinna Cosby MD Unavailable Unavailable Obinna Cosby MD Unavailable Unavailable Obinna Cosby MD Unavailable Unavailable Obinna Cosby MD Unavailable Unavailable Obinna Cosby MD Unavailable Unavailable Obinna Cosby MD Unavailable Unavailable Obinna Cosby MD Unavailable Unavailable Obinna Cosby MD Unavailable Unavailable Obinna Cosby MD Unavailable Unavailable Obinna Cosby MD Unavailable Unavailable Obinna Cosby MD Unavailable Unavailable Leonides Baig MD Unavailable Unavailable Leonides Baig MD Unavailable Unavailable Leonides Baig MD Unavailable Unavailable Leonides Baig MD Unavailable Unavailable Leonides Baig MD Unavailable Unavailable Leonides Baig MD Unavailable Unavailable Leonides Baig MD Unavailable Unavailable Leonides Baig MD Unavailable Unavailable Leonides Baig MD Unavailable Unavailable Leonides Baig MD Unavailable Unavailable Leonides Baig MD Unavailable Unavailable Leonides Baig MD Unavailable Unavailable Leonides Baig MD Unavailable Unavailable Leonides Baig MD Unavailable Unavailable Leonides Baig MD Unavailable Unavailable Leonides Baig MD Unavailable Unavailable Leonides Baig MD Unavailable Unavailable Leonides Baig MD Unavailable Unavailable Leonides Baig MD Unavailable Unavailable Leonides Baig MD Unavailable Unavailable Leonides Baig MD Unavailable Unavailable Leonides Baig MD Unavailable Unavailable Leonides Baig MD Unavailable Unavailable Leonides Baig MD Unavailable Unavailable Leonides Baig MD Unavailable Unavailable Leonides Baig MD Unavailable Unavailable Leonides Baig MD Unavailable Unavailable Leonides Baig MD Unavailable Unavailable Leonides Baig MD Unavailable Unavailable Leonides Baig MD Unavailable Unavailable Leonides Baig MD Unavailable Unavailable Leonides Baig MD Unavailable Unavailable Leonides Baig MD Unavailable Unavailable Leonides Baig MD Unavailable Unavailable Leonides Baig MD Unavailable Unavailable Leonides Baig MD Unavailable Unavailable Leonides Baig MD Unavailable Unavailable Leonides Baig MD Unavailable Unavailable Leonides Baig MD Unavailable Unavailable Leonides Baig MD Unavailable Unavailable Leonides Baig MD Unavailable Unavailable Leonides Baig MD Unavailable Unavailable Leonides Baig MD Unavailable Unavailable Leonides Baig MD Unavailable Unavailable Leonides Baig MD Unavailable Unavailable Leonides Baig MD Unavailable Unavailable Leonides Baig MD Unavailable Unavailable Leonides Baig MD Unavailable Unavailable Leonides Baig MD Unavailable Unavailable Leonides Baig MD Unavailable Unavailable Leonides Baig MD Unavailable Unavailable Leonides Baig MD Unavailable Unavailable Leonides Baig MD Unavailable Unavailable Leonides Baig MD Unavailable Unavailable DOSHI, M BLUE PA Unavailable Unavailable DOSHI, M BLUE PA Unavailable Unavailable DOSHI, M BLUE PA Unavailable Unavailable DOSHI, M BLUE PA Unavailable Unavailable DOSHI, M BLUE PA Unavailable Unavailable DOSHI, M BLUE PA Unavailable Unavailable DOSHI, M BLUE PA Unavailable Unavailable DOSHI, M BLUE PA Unavailable Unavailable DOSHI, M BLUE PA Unavailable Unavailable DOSHI, M BLUE PA Unavailable Unavailable DOSHI, M BLUE PA Unavailable Unavailable DOSHI, M BLUE PA Unavailable Unavailable DOSHI, M BLUE PA Unavailable Unavailable DOSHI, M BLUE PA Unavailable Unavailable DOSHI, M BLUE PA Unavailable Unavailable DOSHI, M BLUE PA Unavailable Unavailable DOSHI, M BLUE PA Unavailable Unavailable DOSHI, M BLUE PA Unavailable Unavailable DOSHI, M BLUE PA Unavailable Unavailable DOSHI, M BLUE PA Unavailable Unavailable DOSHI, M BLUE PA Unavailable Unavailable DOSHI, M BLUE PA Unavailable Unavailable DOSHI, M BLUE PA Unavailable Unavailable DOSHI, M BLUE PA Unavailable Unavailable DOSHI, M BLUE PA Unavailable Unavailable DOSHI, M BLUE PA Unavailable Unavailable DOSHI, M BLUE PA Unavailable Unavailable DOSHI, M BLUE PA Unavailable Unavailable DOSHI, M BLUE PA Unavailable Unavailable DOSHI, M BLUE PA Unavailable Unavailable DOSHI, M BLUE PA Unavailable Unavailable DOSHI, M BLUE PA Unavailable Unavailable DOSHI, M BLUE PA Unavailable Unavailable Re-disclosure Warning The records that you are about to access may contain information from federally-assisted alcohol or drug abuse programs. If such information is present, then the following federally mandated warning applies: This information has been disclosed to you from records protected by federal confidentiality rules (42 CFR part 2). The federal rules prohibit you from making any further disclosure of this information unless further disclosure is expressly permitted by the written consent of the person to whom it pertains or as otherwise permitted by 42 CFR part 2. A general authorization for the release of medical or other information is NOT sufficient for this purpose. The Federal rules restrict any use of the information to criminally investigate or prosecute any alcohol or drug abuse patient.The records that you are about to access may contain highly sensitive health information, the redisclosure of which is protected by Article 27-F of the [facility] Public Health law. If you continue you may have access to information: Regarding HIV / AIDS; Provided by facilities licensed or operated by the [facility] Office of Mental Health; or Provided by the [facility] Office for People With Developmental Disabilities. If such information is present, then the following [facility] mandated warning applies: This information has been disclosed to you from confidential records which are protected by state law. State law prohibits you from making any further disclosure of this information without the specific written consent of the person to whom it pertains, or as otherwise permitted by law. Any unauthorized further disclosure in violation of state law may result in a fine or long-term sentence or both. A general authorization for the release of medical or other information is NOT sufficient authorization for further disc losure. Allergies and Adverse Reactions Type Description Substance Reaction Status Data Source(s ) Drug allergy Morphine Sulfate Morphine hives, tachyarrythmia Activ e eCW1 ([facility]) Family History Family Member Name Family Member Gender Family Member Status Date o f Status Description Data Source(s) Unknown Male Problem MEDENT ([facility] ) Unknown Male Problem MEDENT ([facility] ) Unknown Female Encounters Encounter Providers Location Date Indications Data Source(s ) Office Visit Attender: Jonathan Cosby MD Main Office 01:30:00 PM EST MEDENT ([facility] ) Unknown [address] [facility] [place] [id number] 04/26/2020 12:00:00 AM EST eCW1 ([facility]) Outpatient [address] [facility] [address] [place] [address] 04/20/2020 12:00:00 AM EST eCW1 ([facility]) Unknown [address] [facility] [place] [id number] 04/10/2020 12:00:00 AM EST eCW1 ([facility]) Outpatient [address] [facility] [id number] 04/04/2020 12:00:00 AM EST eCW1 ([facility]) Unknown [address] [facility] [id number] 04/04/2020 12:00:00 AM EST [facility] Outpatient Attender: BLUE Brown/Lisandro/Roosevelt/Nicola dl 03/29/2020 01:30:00 PM EST MEDENT ([facility]) Outpatient Attender: Malick Baig MDAdmitter: Malick portillo MD 008 12/01/2019 02:30:50 PM EDT - 12/01/2019 02:21:00 PM EDT Lab test [facility] Lab test Patient discharged. Outpatient [address] [facility] [id number] 11/18/2019 12:00:00 AM EDT eCW1 ([facility]) Unknown [address] [facility] [id number] 09/22/2019 12:00:00 AM EDT eCW1 ([facility]) [facility] [place] [address] [place] [phone] 06/07/2019 12:00:00 AM EST [facility]CW1 [facility]) [facility] [address] [place] [phone] 06/07/2019 12:00:00 AM EST eCW1 ([facility] [place]) [facility] [place] [address] [place] [phone] 05/12/2019 12:00:00 AM EST eCW1 ([facility] [place]) [facility] [address] [place] [phone] 05/07/2019 12:00:00 AM EST eCW1 ([facility] [place] [place] [address] [place] [phone] 05/06/2019 12:00:00 AM EST eCW1 ([facility]) Medications Medication Brand Name Start Date Product Form Dose Route Admi nistrative Instructions Pharmacy Instructions Status Indications Reaction Description Data Source(s) Aluminum Hydroxide 160 MG / magnesium carbonate 105 MG Chewable Tablet Gaviscon Extra Strength 06/08/2020 12:00:00 AM EST ORAL active MEDENT ([facility]) 875-125 mg 05/02/2020 12:00:00 AM EST tablet 14 TAKE ONE TABLET BY MOUTH TWICE A DAY FOR 7 DAYS TAKE ONE TABLET BY MOUTH TWICE A DAY FOR 7 DAYS SOLD: 05/02/2020 [facility] 5-325 mg 04/17/2020 12:00:00 AM EST tablet 15 TAKE ONE TABLET BY MOUTH THREE TIMES A DAY NEEDED FOR PAIN MAXIMUM DAILY DOSE = 3 TABLETS TAKE ONE TABLET BY MOUTH THREE TIMES A DAY NEEDED FOR PAIN MAXIMUM DAILY DOSE = 3 TABLETS SOLD: 04/17/2020 [facility] 4 mg 04/06/2020 12:00:00 AM EST tablet,disintegrating 3 0 DISSOLVE ONE TABLET ON TONGUE EVERY 8 HOURS NEEDED DISSOLVE ONE TABLET ON TONGUE EVERY 8 HO URS NEEDED SOLD: 04/17/2020 [facility] Zofran ODT 4 MG UNK 04/04/2020 12:00:00 AM EST 1.0 {tablet_on_the_tongue_and_allow_to_dissolve} active Zofran ODT 4 MG eCW1 ([facility]) Zofran ODT 4 MG UNK 04/04/2020 12:00:00 AM EST 1.0 {tablet_on_the_tongue_and_allow_to_dissolve} active Zofran ODT 4 MG eCW1 ([facility]) Zofran ODT 4 MG UNK 04/04/2020 12:00:00 AM EST 1.0 {tablet_on_the_tongue_and_allow_to_dissolve} active Zofran ODT 4 MG eCW1 ([facility]) Zofran ODT 4 MG UNK 04/04/2020 12:00:00 AM EST 1.0 {tablet_on_the_tongue_and_allow_to_dissolve} active Zofran ODT 4 MG eCW1 ([facility]) Zofran ODT 4 MG UNK 04/04/2020 12:00:00 AM EST 1.0 {tablet_on_the_tongue_and_allow_to_dissolve} active Zofran ODT 4 MG eCW1 ([facility]) 40 mg 01/25/2020 12:00:00 AM EDT tablet,delayed release (DR/EC) 90 TAKE ONE TABLET BY MOUTH EVERY DAY TAKE ONE TABLET BY MOUTH EVERY DAY SOLD: 01/28/2020 [facility] pantoprazole 40 MG Delayed Release Oral Tablet PANTOPRAZOLE SODIUM 01/25/2020 12:00:00 AM EDT tablet,delayed release (DR/EC) 90 T GIA ONE TABLET BY MOUTH EVERY DAY TAKE ONE TABLET BY MOUTH EVERY DAY SOLD: 05/02/2020 [facility] 1 % 11/18/2019 12:00:00 AM EDT gel 100 APPLY 2 GRAMS TO TOP OF RIGHT FOOT EVERY 6 HOURS NEEDED FOR 7 DAYS APPLY 2 GRAMS TO TOP OF RIGHT FOOT EVERY 6 HOURS NEEDED FOR 7 DAYS SOLD: 11/18/2019 [facility] Diclofenac Sodium 0.01 MG/MG Topical Gel [Voltaren] Voltaren 1 % Voltaren 1 % 11/18/2019 12:00:00 AM EDT active Voltaren 1 % eCW1 ([facility]) Diclofenac Sodium 0.01 MG/MG Topical Gel [Voltaren] Voltaren 1 % Voltaren 1 % 11/18/2019 12:00:00 AM EDT active Voltaren 1 % eCW1 ([facility]) Diclofenac Sodium 0.01 MG/MG Topical Gel [Voltaren] Voltaren 1 % Voltaren 1 % 11/18/2019 12:00:00 AM EDT active Voltaren 1 % eCW1 ([facility]) Diclofenac Sodium 0.01 MG/MG Topical Gel [Voltaren] Voltaren 1 % Voltaren 1 % 11/18/2019 12:00:00 AM EDT suspended Voltaren 1 % eCW1 ([facility]) Diclofenac Sodium 0.01 MG/MG Topical Gel [Voltaren] Voltaren 1 % Voltaren 1 % 11/18/2019 12:00:00 AM EDT suspended Voltaren 1 % eCW1 ([facility]) Diclofenac Sodium 0.01 MG/MG Topical Gel [Voltaren] Voltaren 1 % Voltaren 1 % 11/18/2019 12:00:00 AM EDT active Voltaren 1 % eCW1 ([facility]) 1 gram 09/22/2019 12:00:00 AM EDT tablet 4 TAKE TWO TABLETS BY MOUTH EVERY 12 HOURS AT ONSET OF SYMPTOMS FOR ONE DAY TAKE TWO TABLETS BY MOUTH EVERY 12 HOURS AT ONSET OF SYMPTOMS FOR ONE DAY SOLD: 09/30/2019 [facility] 1 gram 09/22/2019 12:00:00 AM EDT tablet 4 TAKE TWO TABLETS BY MOUTH EVERY 12 HOURS AT ONSET OF SYMPTOMS FOR ONE DAY TAKE TWO TABLETS BY MOUTH EVERY 12 HOURS AT ONSET OF SYMPTOMS FOR ONE DAY SOLD: 01/28/2020 [facility] 1 gram 09/22/2019 12:00:00 AM EDT tablet 4 TAKE TWO TABLETS BY MOUTH EVERY 12 HOURS AT ONSET OF SYMPTOMS FOR ONE DAY TAKE TWO TABLETS BY MOUTH EVERY 12 HOURS AT ONSET OF SYMPTOMS FOR ONE DAY SOLD: 04/03/2020 [facility] 1 gram 09/22/2019 12:00:00 AM EDT tablet 4 TAKE TWO TABLETS BY MOUTH EVERY 12 HOURS AT ONSET OF SYMPTOMS FOR ONE DAY TAKE TWO TABLETS BY MOUTH EVERY 12 HOURS AT ONSET OF SYMPTOMS FOR ONE DAY SOLD: 05/24/2020 [facility] benzonatate 200 MG Oral Capsule Benzonatate 200 MG Benzonata te 200 MG 05/12/2019 12:00:00 AM EST active 1 capsu le eCW1 ([facility]) benzonatate 200 MG Oral Capsule BENZONATATE 05/12/2019 12:00:00 AM EST capsule 30 TAKE ONE CAPSULE BY MOUTH THREE TIMES A DAY FOR 10 DAYS TAKE ONE CAPSULE BY MOUTH THREE TIMES A DAY FOR 10 DAYS SOLD: 05/12/2019 [facility] pantoprazole 40 MG Delayed Release Oral Tablet PANTOPRAZOLE SODIUM 02/10/2019 12:00:00 AM EDT tablet,delayed release (DR/EC) 180 T GIA ONE TABLET BY MOUTH TWICE A DAY TAKE ONE TABLET BY MOUTH TWICE A DAY SOLD: 11/18/2019 [facility] Insurance Providers Payer name Policy type / Coverage type Policy ID Covered libertarian ID Covered libertarian's relationship to gamboa Policy [place] Plan Information [facility] [id number] SP [id number] [facility] [id number] SP [id number] [employer] S[employer] INSURED [id number] SP [id number] [facility] [id number] SP [id number] [facility] [id number] SP [id number] ANSI-Commercial [id number] ANSI-Commercial [id number] [place] Plan F [id number] SELF [id number] ANSI-Commercial [id number] ANSI-Commercial [id number] ANSI-Commercial [id number] ANSI-Commercial [id number] [facility] Health Maintenance Organization (O) [id number] Self [id number] ANSI-Commercial [id number] [facility] (O) [id number] Self [id number] [facility] (O) [id number] Self [id number] [facility] Health Maintenance Organization (HMO) [id number] Self [id number] [facility] Health Maintenance Organization (O) [id number] Self [id number] [facility] [id number] SP [id number] [facility] EMELY DIV [id number] SP [id number] [facility] Health Maintenance Organization (HMO) [id number] Self [id number] [facility] Health Maintenance Organization (HMO) Self [facility] Maintenance Organization (HMO) Self [id number] Problems, Conditions, and Diagnoses Code Display Name Description Problem Type Effective Dates Data Source(s) K80.20 35932088 Calculus of gallblad madhavi without cholecystitis without obstruction Problem 04/20/2020 12:00:00 AM EST eCW1 ([facility]) Results ID Date Data Source [id number] 06/15/2020 10:00:00 AM EST [facility] Name Value Range Interpretation Code Description Data Joy rce(s) Supporting Document(s) SARS coronavirus 2 RNA Not Detected [facility] This lab was ordered by [facility] and reported by [facility]. ID Date Data Source CT ABD/PEL w/IV & Oral Contrast 04/05/2020 12:00:00 AM EST e CW1 ([facility]) Name Value Range Interpretation Code Description Data Joy rce(s) Supporting Document(s) eCW1 ([facility]) ID Date Data Source Comprehensive Metabolic Profile (CMP) 04/04/2020 12:00:00 AM EST eCW1 ([facility]) Name Value Range Interpretation Code Description Data Joy rce(s) Supporting Document(s) 0.97 0.70-1.30 CREATININE FOR GFR eCW1 ([facility]) 12 7-18 BLOOD UREA NITROGEN eCW1 ([facility]) 100 70-100 GLUCOSE, FASTING eCW1 ([facility]) 108 98-107 CHLORIDE LEVEL eCW1 ([facility]) 140 136-145 SODIUM LEVEL eCW1 ([facility]) > 60.0 >60 GLOMERULAR FILTRATION RATE eCW 1 ([facility]) 3.6 3.5-5.1 POTASSIUM SERUM eCW1 ([facility]) 9.0 8.5-10.1 CALCIUM LEVEL eCW1 ([facility]) 25 21-32 CARBON DIOXIDE LEVEL eCW1 ([facility]) 87 12-78 ALT/SGPT eCW1 ([facility]) 37 7-37 AST/SGOT eCW1 ([facility]) 109 45-117 ALKALINE PHOSPHATASE eCW1 ([facility]) 0.6 0.2-1.0 BILIRUBIN,TOTAL eCW1 ([facility]) 7.3 6.4-8.2 TOTAL PROTEIN eCW1 ([facility]) 3.9 3.2-5.2 ALBUMIN eCW1 ([facility]) 1.1 ALBUMIN/GLOBULIN RATIO eCW1 ([facility]) ID Date Data Source CBC with Differential 04/04/2020 12:00:00 AM EST eCW1 ([facility]) Name Value Range Interpretation Code Description Data Joy rce(s) Supporting Document(s) 11.4 4.0-10.0 eCW1 ([facility]) 89.9 80.0-96.0 eCW1 ([facility]) 49.8 42.0-52.0 eCW1 ([facility]) 16.9 13.5-17.5 eCW1 ([facility]) 5.54 4.30-6.10 eCW1 ([facility]) 12.0 11.5-14.5 eCW1 ([facility]) 30.5 27.0-33.0 eCW1 ([facility]) 298 150-450 eCW1 ([facility]) 33.9 32.0-36.5 eCW1 ([facility]) 57.1 36.0-66.0 eCW1 ([facility]) 27.0 24.0-44.0 eCW1 ([facility]) 9.7 0.0-5.0 eCW1 ([facility]) 5.4 0.0-3.0 eCW1 ([facility]) 1.1 0.0-0.8 eCW1 ([facility]) 3.1 1.5-5.0 eCW1 ([facility]) 0.4 0.0-1.0 eCW1 ([facility]) 6.5 1.5-8.5 eCW1 ([facility]) 0.0 0.0-0.2 eCW1 ([facility]) 0.6 0.0-0.5 eCW1 ([facility]) ID Date Data Source LIPASE 04/04/2020 12:00:00 AM EST eCW1 ([facility]) Name Value Range Interpretation Code Description Data Joy rce(s) Supporting Document(s) 67 82-468 eCW1 ([facility]) ID Date Data Source ERYTHROCYTE SEDIMENTATION RATE 04/04/2020 12:00:00 AM EST eC W1 ([facility]) Name Value Range Interpretation Code Description Data Joy rce(s) Supporting Document(s) 3 0-15 eCW1 ([facility]) ID Date Data Source C REACTIVE PROTEIN QUANTITATIV ([facility]) 04/04/2020 12:00 :00 AM EST eCW1 ([facility]) Name Value Range Interpretation Code Description Data Joy rce(s) Supporting Document(s) 0.79 0.00-0.30 eCW1 ([facility]) ID Date Data Source [id number] 11/30/2019 04:25:[address] [facility] Name Value Range Interpretation Code Description Data Joy rce(s) Supporting Document(s) Cholesterol [Mass/volume] in Serum or Plasma 187 mg/dL [facility] Triglyceride [Mass/volume] in Serum or Plasma 305 mg/dL [facility] Cholesterol in HDL [Mass/volume] in Serum or Plasma 27 mg/dL [facility] Cholesterol in LDL [Mass/volume] in Serum or Plasma by calculation 99 mg/dL [facility] CHOL/HDL 6.93 [facility] l \\BLDo\\INTERPRE TATION\\BLDx\\ REFERENCE RANGES (NATIONAL CHOLESTEROL EDUCATION PROGRAM) CHOLESTEROL < 200 mg/dL DESIREABLE 200 - 239 mg/dL BORDERLINE HIGH > 240 mg/dL HIGH TRIGLYCERIDES < 150 mg/dL DESIREABLE 150 - 199 mg/dL BORDERLINE HIGH 200 - 499 mg/dL HIGH > or = 500 mg/dL VERY HIGH HDL > or = 60 mg/dL HIGH < 40 mg/dL LOW LDL < 100 mg/dL DESIREABLE 100 - 129 mg/dL LOW RISK 130 - 159 mg/dL BORDERLINE HIGH 160 - 189 mg/dL HIGH > or = 190 mg/dL VERY HIGH ID Date Data Source [id number] 11/30/2019 04:25:[address] [facility] Name Value Range Interpretation Code Description Data Joy rce(s) Supporting Document(s) COMPREHENSIVE CHEM PROFILE [facility] COMPREHENSIVE METABOLIC PANEL Sodium [Moles/volume] in Serum or Plasma 139 mEq/L 136 - 145 [facility] Potassium [Moles/volume] in Serum or Plasma 4.2 mEq/L 3.5 - 5.1 [facility] Chloride [Moles/volume] in Serum or Plasma 101 mEq/L 98 - 107 [facility] Carbon dioxide, total [Moles/volume] in Serum or Plasma 28.6 mEq /L 21.0 - 32.0 [facility] Glucose [Mass/volume] in Serum or Plasma 92 mg/dL 70 - 100 [facility] Urea nitrogen [Mass/volume] in Serum or Plasma 16 mg/dL 7 - 18 [facility] CREATININE SERUM 1.13 mg/dL 0.70 - 1.30 [facility] AGE 44 yrs [facility] HEIGHT NA [facility] eGFR NON-AFR AMR >60 [facility] eGFR AFR AMR >60 [facility] BUN/CREAT 14 6 - 25 [facility] Protein [Mass/volume] in Serum or Plasma 7.1 g/dL 6.0 - 8.3 [facility] Albumin [Mass/volume] in Serum or Plasma 4.2 g/dL 3.8 - 5.4 [facility] GLOBULIN 2.9 g/dL 2.0 - 4.0 [facility] A/G RATIO 1.4 0.8 - 2.0 [facility] Calcium [Mass/volume] in Serum or Plasma 9.3 mg/dL 8.8 - 10.2 [facility] Bilirubin.total [Mass/volume] in Serum or Plasma 0.7 mg/dL 0.2 - 1.0 [facility] Bilirubin.direct [Mass/volume] in Serum or Plasma 0.2 mg/dL 0.0 - 0. 2 [facility] INDIRECT BILI 0.5 mg/dL 0.0 - 1.1 [facility] pital ALK PHOSPHATASE 93 U/L 40 - 129 [facility] ospital Aspartate aminotransferase [Enzymatic ac tivity/volume] in Serum or Plasma by With P-5'-P 41 IU/L 7 - 37 Above high normal [facility] ital Alanine aminotransferase [Enzymatic acti vity/volume] in Serum or Plasma by With P-5'-P 76 IU/L 12 - 78 [facility] ANION GAP 9 7 - 15 [facility] l Estimated GFR referenc e range: >60ml/min/1.73m >18 years: Calculated using IDMS traceable Study Equation <18 years: Calculated using IDMS tracable Bedside Schartz Equation ID Date Data Source PLZ FOOT COMPLETE 11/19/2019 07:14:52 AM EDT eCW1 ([facility]) Name Value Range Interpretation Code Description Data Joy rce(s) Supporting Document(s) PLZ FOOT COMPLETE eCW1 (Formerly [facility], later [facility]) Procedure Social History Code Duration Value Status Description Data Source(s ) Smoking 03/29/2020 12:00:00 AM EST Patient is a former smoker completed Patient is a former smoker [facility] ([facility], ) Vital Signs ID Date Data Source UNK Name Value Range Interpretation Code Description Data Source(s) Body temperature 96.6 [degF] 96.6 [degF] [facility] ([facility]) Body weight 126.554 kg 126.554 kg [facility]) Body mass index (BMI) [Ratio] 36.8 kg/m2 36.8 k g/m2 [facility] ([facility]) Heart rate 61 /min 61 /min [facility] ([facility]) Diastolic blood pressure 79 mm[Hg] 79 mm[Hg] [facility] ([facility]) Systolic blood pressure 129 mm[Hg] 129 mm[Hg] M EDENT ([facility]) Body weight 279.00 [lb_av] 279.00 [lb_av] MEDEN T ([facility]) Body height 73 [in_i] 73 [in_i] MEDENT ([facility]) 6'1" Body surface area Derived from formula 2.49 m2 2.49 m2 [facility] ([facility]) Body weight 127.462 kg 127.462 kg [facility] ([facility]) [place] body weight 184 [lb_av] 184 [lb_av] MEDEN T ([facility]) Body mass index (BMI) [Ratio] 37.1 kg/m2 37.1 k g/m2 [facility] ([facility]) Body weight 281.00 [lb_av] 281.00 [lb_av] MEDEN T ([facility]) Body height 73 [in_i] 73 [in_i] [facility] ([facility]) 6'1" Diastolic blood pressure 84 mm[Hg] 84 mm[Hg] [facility] ([facility]) Systolic blood pressure 160 mm[Hg] 160 mm[Hg] [facility]) Diastolic blood pressure 82 mm[Hg] 82 mm[Hg] eCW1 ([facility]) Systolic blood pressure 124 mm[Hg] 124 mm[Hg] e CW1 ([facility]) Body temperature 98.2 [degF] 98.2 [degF] eCW1 ( [facility]) Respiratory rate 18 /min 18 /min eCW1 ([facility]) Heart rate 60 /min 60 /min eCW1 (Formerly [facility]) Body mass index (BMI) [Ratio] 36.86 kg/m2 36.86 kg/m2 W1 ([facility]) Body height 73 [in_i] 73 [in_i] eCW1 ([facility]) Body weight 279.4 [lb_av] 279.4 [lb_av] eCW1 ([facility]) Diastolic blood pressure 80 mm[Hg] 80 mm[Hg] eCW1 ([facility]) Systolic blood pressure 140 mm[Hg] 140 mm[Hg] e CW1 ([facility]) Body temperature 96.1 [degF] 96.1 [degF] eCW1 ( [facility]) Respiratory rate 18 /min 18 /min eCW1 ([facility]) Heart rate 67 /min 67 /min eCW1 ([facility]) Body mass index (BMI) [Ratio] 36.15 kg/m2 36.15 kg/m2 eCW1 ([facility]) Body height 73 [in_i] 73 [in_i] eCW1 ([facility]) Body weight 274 [lb_av] 274 [lb_av] eCW1 ([facility]) Body surface area Derived from formula 2.50 m2 2.50 m2 [facility] ([facility]) Body weight 129.276 kg 129.276 kg [facility] ([facility]) [place] body weight 184 [lb_av] 184 [lb_av] MEDEN T ([facility]) Body mass index (BMI) [Ratio] 37.6 kg/m2 37.6 k g/m2 [facility] ([facility]) Body weight 285.00 [lb_av] 285.00 [lb_av] MEDEN T ([facility]) Body height 73 [in_i] 73 [in_i] [facility] ([facility]) 6'1" Body temperature 97.3 [degF] 97.3 [degF] [facility] ([facility]) Oxygen saturation in Arterial blood by Pulse oximetry 96 % 96 % [facility] ([facility]) Heart rate 67 /min 67 /min [facility] ([facility]) Diastolic blood pressure 76 mm[Hg] 76 mm[Hg] [facility] ([facility]) Systolic blood pressure 132 mm[Hg] 132 mm[Hg] M EDENT ([facility]) Diastolic blood pressure 78 mm[Hg] 78 mm[Hg] eCW1 ([facility]) Systolic blood pressure 132 mm[Hg] 132 mm[Hg] e CW1 ([facility]) Body temperature 7.1 [degF] 7.1 [degF] eCW1 ([facility]) Respiratory rate 18 /min 18 /min eCW1 ([facility]) Heart rate 60 /min 60 /min eCW1 ([facility]ly [facility]) Body mass index (BMI) [Ratio] 37.28 kg/m2 37.28 kg/m2 eCW1 ([facility]) Body height 73 [in_i] 73 [in_i] eCW1 ([facility]) Body weight 282.6 [lb_av] 282.6 [lb_av] eCW1 ([facility]) Diastolic blood pressure 93 mm[Hg] 93 mm[Hg] eCW1 ([facility]) Systolic blood pressure 142 mm[Hg] 142 mm[Hg] e CW1 ([facility]) Body temperature [degF] eCW1 ([facility]) Respiratory rate 16 /min 16 /min eCW1 ([facility]) Heart rate 67 /min 67 /min eCW1 ([facility]) Body mass index (BMI) [Ratio] 37.20 kg/m2 37.20 kg/m2 eCW1 ([facility]) Body height 73 [in_us] 73 [in_us] eCW1 ([facility]) Body weight Measured 282 [lb_av] 282 [lb_av] eC W1 ([facility]) Diastolic blood pressure 72 mm[Hg] 72 mm[Hg] eCW1 ([facility]) Systolic blood pressure 124 mm[Hg] 124 mm[Hg] e CW1 ([facility]) Body temperature 98.1 [degF] 98.1 [degF] eCW1 ( [facility]) Respiratory rate 20 /min 20 /min eCW1 ([facility]) Heart rate 68 /min 68 /min eCW1 ([facility]) Body mass index (BMI) [Ratio] 37.10 kg/m2 37.10 kg/m2 eCW1 ([facility]) Body height 73 [in_us] 73 [in_us] eCW1 ([facility]) Body weight Measured 281.2 [lb_av] 281.2 [lb_av ] eCW1 ([facility]) Patient Treatment Plan of Care Planned Activity Planned Date Details Description Data Source (s) Zofran ODT 4 MG 04/04/2020 12:00:00 AM EST eCW1 ([facility]) Zofran ODT 4 MG 04/04/2020 12:00:00 AM EST eCW1 ([facility]) Zofran ODT 4 MG 04/04/2020 12:00:00 AM EST eCW1 ([facility]) Diclofenac Sodium 0.01 MG/MG Topical Gel [Voltaren] 11/18/19 12:00:00 AM EDT eCW1 ([facility]) benzonatate 200 MG Oral Capsule 05/12/2019 12:00:00 AM EST eCW1 ([facility])
--- OUTSIDE RECORDS SUMMARY | 2020-06-20 09:12 | CCD | Continuity of Care Document ---
Demographics Address [address] [place] [address] Home Phone [phone] Preferred Language Unknown Marital Status Unknown Voodoo Affiliation Unknown Race White Ethnic Group Not or Author Author Randall DOSHI [place] Organization Unknown Address [address] [place] [address] Phone [phone] Care Team Providers Care Dental Floss Packer Name Role Phone Malick Baig M.D. AUTM [phone] Problems Active Problems Provider Date Obstructive sleep apnea syndrome DAISY Venegas Onset: 12/15/2017 Social History Type Date Description Comments Sex Unknown Smokeless Tobacco Never Used Smokeless Tobacco ETOH Use 20 per week Recreational Drug Use Denies Drug Use Tobacco Use Reviewed: 12/21/18 Chewing Tobacco Chews every d ay. Tobacco Use Start: Unknown End: Unknown Patient is a former smoker Pt can not remember the year or age he was when he started smoking but only smoked for 1 or 2 years. Smoking Status Reviewed: 03/29/20 Patient is a former smoker Pt can not remember the year or age he was when he started smoking but only smoked for 1 or 2 years. Allergies, Adverse Reactions, Alerts Active Allergies Reaction [...] daily Unknown CPAP | 10cm [place] Unknown Immunizations Description No Information Available Vital Signs Date Vital Result Comment 03/29/2020 2:10pm BP Systolic 132 mmHg BP Diastolic 76 mmHg Heart Rate 67 /min O2 % BldC Oximetry 96 % Body Temperature 97.3 F Height 73 inches 6'1" Weight 285.00 lb BMI (Body Mass Index) 37.6 kg/m2 [place] Body Weight 184 lb Weight 129.276 kg BSA (Body Surface Area) 2.50 m2 12/21/2018 8:35am BP Systolic 120 mmHg BP Diastolic 70 mmHg Heart Rate 41 /min O2 % BldC Oximetry 95 % Room Air Height 73 inches 6'1" Weight 272.00 lb BMI (Body Mass Index) 35.9 kg/m2 [place] Body Weight 184 lb Weight 123.379 kg BSA (Body Surface Area) 2.45 m2 Results Description No Information Available Procedures Description No Information Available Medical Devices Description No Information Available Encounters Description No Information Available Assessments Date Code Description Provider 03/29/2020 G47.33 Obstructive sleep apnea (adult) (pediatric) DAISY Venegas Plan of Treatment 03/29/2020 - DAISY Veengas* G47.33 Obstructive sleep apnea (adult) (pediatric) * * New Orders:* CPAP/BIPAP Supply, Ordered: 03/29/20 * Follow up:* Follow up in 1 year with compliance download Functional Status Description No Information Available Mental Status Description No Information Available Referrals Description No Information Available
[2020-06-20] MEDS ORDERED: BUPIVACAINE HCL 0.25% 30ML VIAL As Ordered ONE (10:18)
[2020-06-20] MEDS ORDERED: KETOROLAC 60MG 2ML VIAL As Ordered ONE (10:51)
[2020-06-20] MEDS ORDERED: dexameTHASONE 4 MG/ML 1ML VIAL (J1100 PER 1MG) As Ordered ONE (10:51)
[2020-06-20] MEDS ORDERED: SUGAMMADEX SODIUM 500 MG/5 ML VIAL (BRIDION) As Ordered ONE (10:51)
[2020-06-20] MEDS ORDERED: LIDOCAINE 2% 100MG/5ML SDV (FOR ANES.) As Ordered ONE (10:51)
[2020-06-20] MEDS ORDERED: MIDAZOLAM INJ 2MG/2ML VIAL (J2250 PER 1MG) As Ordered ONE (10:51)
[2020-06-20] MEDS ORDERED: ONDANSETRON 4MG/2ML VIAL As Ordered ONE (10:51)
[2020-06-20] MEDS ORDERED: METOCLOPRAMIDE INJ 10MG/2ML VIAL (J2765 PER 1) As Ordered ONE (10:51)
[2020-06-20] MEDS ORDERED: ACETAMINOPHEN 1000MG 100ML IV BTL (OFIRMEV) (J0131 PER 10MG) As Ordered ONE (10:51)
[2020-06-20] MEDS ORDERED: fentaNYL 250 MCG/5 ML INJECTION (J3010) As Ordered ONE ×2 (10:51→11:15)
[2020-06-20] MEDS ORDERED: ROCURONIUM BROMIDE 50 MG/5 ML VIAL As Ordered ONE (10:51)
[2020-06-20] MEDS ORDERED: propofoL 200 MG/20 ML VIAL As Ordered ONE (10:51)
[2020-06-20] MEDS ORDERED: HYDROmorphone HCL 2 MG/ML 1ML VIAL (J1170) As Ordered ONE (11:12)
[2020-06-20] MEDS ORDERED: oxyCODONE 5MG TAB As Ordered ONE (13:24)
[2020-06-20] MEDS ORDERED: HYDR-4571 PO (13:27)
[2020-06-20] MEDS ORDERED: fentaNYL 100 MCG/2 ML INJECTION (J3010) IV PRN (14:15)
[2020-06-20] MEDS ORDERED: IBUPROFEN 600MG TAB PO PRN (14:15)
[2020-06-20] MEDS ORDERED: LR 1,000 ML IV SCH (14:15)
[2020-06-20] MEDS ORDERED: oxyCODONE 5MG TAB PO PRN (14:15)
[2020-06-20] MEDS ORDERED: ONDANSETRON 4MG/2ML VIAL IV PRN (14:15)
[2020-06-20] MEDS ORDERED: ACETAMINOPHEN 500 MG TAB PO PRN (14:15)
[2020-06-20 14:38] VITALS: BP 161/80
--- NOTE | 2020-06-23 12:13 | RO ---
OPERATIVE NOTE DATE OF OPERATION: 06/20/2020 PREOPERATIVE DIAGNOSIS: Symptomatic gallstones. POSTOPERATIVE DIAGNOSIS: Symptomatic gallstones. PROCEDURE: Robotic-assisted laparoscopic cholecystectomy. SURGEON: Naga Calzada MD WOOD TREATING INSPECTOR: Radha Pollock. Radha's assistance was necessary for managing the robotic instrumentation with placement of ports, change of instruments, removal of specimen and suturing of the incisions. ANESTHESIA: General. INDICATIONS FOR THE PROCEDURE: The patient is a 44-year-old man who had suffered several episodes of upper abdominal pain consistent with biliary colic. Gallbladder ultrasound confirmed cholelithiasis and he is now for a robotic-assisted laparoscopic cholecystectomy. OPERATIVE PROCEDURE: The patient was brought to the operating room and placed on the table in a supine position. He was placed under general endotracheal anesthesia. The patient's abdomen was prepped and draped in a sterile fashion. 0.25% Marcaine was infiltrated at each of the trocar sites as needed. A short transverse incision was made in the mid left upper quadrant and a Veress needle was inserted. After a positive hanging drop test, the abdomen was inflated with carbon dioxide gas. An 8 mm robotic port was placed over the scope and advanced through the abdominal wall without difficulty. Initial examination showed abundant fatty tissue covering the undersurface of the liver. There were no significant adhesions identified. Three additional 8 mm ports were placed. One was just above the umbilicus along the midline and the other two were spaced evenly in the right lower quadrant. The patient was rolled slightly to the left and tilted to a reverse Trendelenburg position. The patient cart of the da Alanis Xi robot was brought into position and the endoscope arm was docked to the supraumbilical site. Targeting took place in the right upper quadrant and the additional arms were then docked. A hook cautery, fenestrated bipolar, and grasping retractor were then inserted. I then moved to the control console to proceed with the operation. Initially, the omentum was pulled inferiorly to expose the fundus of the gallbladder. The fundus was grasped and elevated. A few filmy adhesions to the omentum were divided using the hook cautery. This allowed better elevation of the gallbladder. The peritoneum was scored around the gallbladder neck and dissection proceeded through the pericholecystic soft tissues. The cystic duct and the cholecystic artery were both clearly identified. Both structures were dissected out freely and then doubly clipped with hemoclips and divided. The gallbladder was then dissected free from the gallbladder bed using the hook cautery. The gallbladder was not perforated in the course of dissection. The gallbladder was placed in an Endopouch. The right upper quadrant was inspected and there was no evidence of bleeding or bile leak. I then returned to the patient's side. The robotic instruments were removed and the robot undocked. The patient was returned to a flat position. The abdomen was deflated. The specimen retrieval bag was retrieved through the supraumbilical site. It was necessary to extend the incision slightly to allow passage of the gallbladder. This was sent for permanent pathology. The fascia at the midline was closed with interrupted simple sutures of 1-0 Vicryl. The skin incisions were all closed with buried 4-0 Vicryl and Steri-Strips. Light dressings were applied. The patient tolerated the procedure well without apparent complication. He was awaken in the operating room, extubated and moved to the recovery room in stable condition.
== END 2020-06-20 14:41 | disposition home or self-care (01) ==
LOC: M SDC 08:10
PROVIDERS: ATTEND Surgery
DX: K81.1 Chronic cholecystitis (principal); K21.9 Gastro-esophageal reflux disease without esophagitis; G47.33 Obstructive sleep apnea (adult) (pediatric); A60.00 Herpesviral infection of urogenital system, unspecified; Z79.899 Other long term (current) drug therapy; Z88.5 Allergy status to narcotic agent; F17.220 Nicotine dependence, chewing tobacco, uncomplicated
CPT/HCPCS: 47562; 88304; J0131; J1100; J1885; J2250; J2405; J2765; J3010; S2900

== ENCOUNTER → 2021-05-22 | Outpatient (REF) | payer BC, OTHER ==
[~2021-05-22] MED LIST changes: +HYDR-4571 PO; -LR 1,000 ML IV ONE
== END ==
LOC: M LAB REF 17:09
PROVIDERS: ATTEND Otolaryngology
DX: J34.81 Nasal mucositis (ulcerative) (principal)

== ENCOUNTER → 2021-09-14 | Outpatient (CLI) | payer BC, OTHER ==
[2021-09-14 10:15] LABS: HEMATOCRIT 48.9 % (42.0-52.0); HEMOGLOBIN 16.6 g/dl (13.5-17.5); MEAN CORPUSCULAR HEMOGLOBIN 30.7 pg (27.0-33.0); MEAN CORPUSCULAR HGB CONC 33.9 g/dl (32.0-36.5); MEAN CORPUSCULAR VOLUME 90.6 fl (80.0-96.0); PLATELET COUNT, AUTOMATED 282 10^3/uL (150-450); WHITE BLOOD COUNT 7.8 10^3/uL (4.0-10.0)
[2021-09-14 10:27] LABS: ALT/SGPT 108 U/L (12-78); BILIRUBIN,TOTAL 0.7 MG/DL (0.2-1.0); BLOOD UREA NITROGEN 10 MG/DL (7-18); CALCIUM LEVEL 8.9 MG/DL (8.5-10.1); CARBON DIOXIDE LEVEL 32 MEQ/L (21-32); CHLORIDE LEVEL 108 MEQ/L (98-107); CHOLESTEROL LEVEL 192 MG/DL (<200); CHOLESTEROL RISK RATIO 6.193 (<5); CREATININE FOR GFR 1.02 MG/DL (0.70-1.30); GLOMERULAR FILTRATION RATE > 60.0 (>60); GLUCOSE, FASTING 91 MG/DL (70-100); HDL CHOLESTEROL 31 MG/DL (>40); LDL CHOLESTEROL 125 MG/DL (<100); NON-HDL-C 161 MG/DL; POTASSIUM SERUM 4.5 MEQ/L (3.5-5.1); SODIUM LEVEL 141 MEQ/L (136-145); TOTAL PROTEIN 7.2 GM/DL (6.4-8.2); TRIGLYCERIDES LEVEL 181 MG/DL (<150)
== END ==
LOC: M PLALAB 07:14
PROVIDERS: ATTEND Family Medicine
DX: E78.6 Lipoprotein deficiency (principal); E78.1 Pure hyperglyceridemia; G47.33 Obstructive sleep apnea (adult) (pediatric)

== ENCOUNTER → 2021-09-28 | Outpatient (CLI) | payer BC, OTHER | LOC: M SOG 09:29 | PROVIDERS: ATTEND Orthopaedic Surgery Adult Reconstructive Orthopaedic Surgery | DX: M25.561 Pain in right knee (principal); M25.562 Pain in left knee; M17.11 Unilateral primary osteoarthritis, right knee ==

== ENCOUNTER → 2021-10-12 | Outpatient (CLI) | payer BC, OTHER | LOC: M PLAIMG 06:57 | PROVIDERS: ATTEND Orthopaedic Surgery Adult Reconstructive Orthopaedic Surgery | DX: M23.331 Other meniscus derangements, other medial meniscus, right knee (principal); M94.261 Chondromalacia, right knee; M25.461 Effusion, right knee ==

== ENCOUNTER → 2021-10-26 | Outpatient (CLI) | payer BC, OTHER ==
[~2021-10-26] MED LIST changes: +ATOR40TA75 PO
== END ==
LOC: M SLEEP 20:00
PROVIDERS: ATTEND Physician Assistant
DX: G47.33 Obstructive sleep apnea (adult) (pediatric) (principal)

== ENCOUNTER → 2021-11-04 | Outpatient (CLI) | payer BC, OTHER | LOC: M LABSMTC 10:14 | PROVIDERS: ATTEND Anesthesiology | DX: Z01.812 Encounter for preprocedural laboratory examination (principal); Z20.822 Contact with and (suspected) exposure to COVID-19 ==

== ENCOUNTER 2021-11-06 09:57 | Day surgery (SDC) | payer BC, OTHER ==
[~2021-11-06] VITALS: Ht 185.4 cm; Wt 127.8 kg
[~2021-11-06 09:57] MED LIST changes: +ACETAMINOPHEN 500 MG TAB PO ONE; +CelecoXIB 400 MG CAP PO ONE; +GABAPENTIN 300 MG CAP PO ONE; +ONDANSETRON 4MG 2ML VIAL IV ONE
[2021-11-06] MEDS ORDERED: LR 1,000 ML IV SCH ×3 (10:10→14:35)
[2021-11-06] MEDS ORDERED: ONDANSETRON 4MG 2ML VIAL As Ordered ONE (10:59)
[2021-11-06] MEDS ORDERED: propofoL 200 MG/20 ML VIAL As Ordered ONE (10:59)
[2021-11-06] MEDS ORDERED: dexameTHASONE 4 MG/ML 1ML VIAL (J1100 PER 1MG) As Ordered ONE (10:59)
[2021-11-06] MEDS ORDERED: LIDOCAINE 2% INJ 100 MG/5 ML SYRINGE As Ordered ONE (10:59)
[2021-11-06] MEDS ORDERED: BUPIVACAINE/EPIN 0.5% 30 ML VIAL As Ordered ONE (12:40)
[2021-11-06] MEDS ORDERED: fentaNYL 100 MCG/2 ML INJECTION As Ordered ONE ×2 (13:12→14:09)
[2021-11-06] MEDS ORDERED: MIDAZOLAM INJ 2MG/2ML VIAL (J2250 PER 1MG) As Ordered ONE (13:12)
[2021-11-06] MEDS ORDERED: ONDANSETRON 4MG 2ML VIAL IV PRN (14:05)
[2021-11-06] MEDS ORDERED: fentaNYL 100 MCG/2 ML INJECTION IV PRN (14:05)
[2021-11-06 15:28] VITALS: BP 152/80
== END 2021-11-06 15:30 | disposition home or self-care (01) ==
LOC: M SDC 09:57
PROVIDERS: ATTEND Orthopaedic Surgery Adult Reconstructive Orthopaedic Surgery
DX: S83.241A Other tear of medial meniscus, current injury, right knee, initial encounter (principal); G47.33 Obstructive sleep apnea (adult) (pediatric); E78.5 Hyperlipidemia, unspecified; K21.9 Gastro-esophageal reflux disease without esophagitis; Z88.5 Allergy status to narcotic agent; Z79.899 Other long term (current) drug therapy; F17.220 Nicotine dependence, chewing tobacco, uncomplicated
CPT/HCPCS: 29881; 97116; 97161; J1100; J2250; J2405; J3010

== ENCOUNTER → 2022-05-21 | Outpatient (CLI) | payer BC, OTHER ==
[~2022-05-21] MED LIST changes: -ACETAMINOPHEN 500 MG TAB PO ONE; -CelecoXIB 400 MG CAP PO ONE; -GABAPENTIN 300 MG CAP PO ONE; -ONDANSETRON 4MG 2ML VIAL IV ONE
[2022-05-21 13:33] LABS: ALBUMIN 3.8 G/DL (3.2-5.2); ALKALINE PHOSPHATASE 101 U/L (46-116); ALT/SGPT 80 U/L (7.0-40); AST/SGOT 53 U/L (<34); BILIRUBIN,DIRECT 0.2 MG/DL (<0.4); BILIRUBIN,TOTAL 0.6 MG/DL (0.3-1.2); CHOLESTEROL LEVEL 171 MG/DL (<200); CHOLESTEROL RISK RATIO 5.44 (<5); HDL CHOLESTEROL 31.4 MG/DL (>40); LDL CHOLESTEROL 102.6 MG/DL (<100); NON-HDL-C 140 MG/DL; TOTAL PROTEIN 6.9 G/DL (5.7-8.2); TRIGLYCERIDES LEVEL 185 MG/DL (<150)
[2022-05-21 13:52] LABS: HEPATITIS B SURFACE ANTIGEN NEGATIVE (NEGATIVE)
[2022-05-21 14:14] LABS: HEPATITIS B CORE ANTIBODY IGM NEGATIVE (NEGATIVE)
== END ==
LOC: M PLALAB 10:15
PROVIDERS: ATTEND Family Medicine
DX: E78.2 Mixed hyperlipidemia (principal)

== ENCOUNTER → 2023-03-26 | Outpatient (CLI) | payer BC, OTHER ==
[2023-03-26 11:28] LABS: ALKALINE PHOSPHATASE 102 U/L (46-116); ALT/SGPT 62 U/L (7.0-40); AST/SGOT 36 U/L (<34); BILIRUBIN,TOTAL 0.8 MG/DL (0.3-1.2); BLOOD UREA NITROGEN 15 MG/DL (9-23); CARBON DIOXIDE LEVEL 28 MMOL/L (20-31); CHLORIDE LEVEL 106 MMOL/L (98-107); CHOLESTEROL LEVEL 186 MG/DL (<200); CHOLESTEROL RISK RATIO 6.24 (<5); CREATININE FOR GFR 0.97 MG/DL (0.70-1.30); GLOMERULAR FILTRATION RATE > 60.0 (>60); GLUCOSE, FASTING 82 MG/DL (60-100); HDL CHOLESTEROL 29.8 MG/DL (>40); LDL CHOLESTEROL 122.4 MG/DL (<100); NON-HDL-C 156.2 MG/DL; POTASSIUM SERUM 4.6 MMOL/L (3.5-5.1); SODIUM LEVEL 141 MMOL/L (136-145); TOTAL PROTEIN 6.9 G/DL (5.7-8.2); TRIGLYCERIDES LEVEL 169 MG/DL (<150)
[2023-03-26 11:35] LABS: HEMOGLOBIN A1c 4.8 % (4.0-6.0)
== END ==
LOC: M PLALAB 07:31
PROVIDERS: ATTEND Family Medicine
DX: E78.2 Mixed hyperlipidemia (principal); K75.81 Nonalcoholic steatohepatitis (NASH); R79.89 Other specified abnormal findings of blood chemistry; Z13.1 Encounter for screening for diabetes mellitus

== ENCOUNTER → 2023-10-24 | Outpatient (REF) | payer OTHER ==
[~2023-10-24] MED LIST changes: +ONDA-282 PO; -ONDA4TAB6 PO
[2023-10-24 15:36] LABS: CHOLESTEROL RISK RATIO 5.5 (<5); HDL CHOLESTEROL 30.7 MG/DL (>40); LDL CHOLESTEROL 97.9 MG/DL (<100); NON-HDL-C 138.3 MG/DL
== END ==
LOC: M PLALAB 15:00
PROVIDERS: ATTEND Family Medicine
DX: E78.2 Mixed hyperlipidemia (principal); K75.81 Nonalcoholic steatohepatitis (NASH)

== ENCOUNTER 2024-12-12 11:38 | Emergency (ER) | payer BC, OTHER ==
[~2024-12-12] VITALS: Ht 185.4 cm; Wt 122.7 kg
[2024-12-12 14:53] VITALS: BP 127/76; TEMP 97; O2SAT 98
== END 2024-12-12 15:34 | disposition home or self-care (01) ==
LOC: M ED 11:38
DX: S73.102A Unspecified sprain of left hip, initial encounter (principal); S83.92XA Sprain of unspecified site of left knee, initial encounter; X58.XXXA Exposure to other specified factors, initial encounter; Y92.89 Other specified places as the place of occurrence of the external cause; Y93.9 Activity, unspecified; Y99.9 Unspecified external cause status; K21.9 Gastro-esophageal reflux disease without esophagitis; Z79.899 Other long term (current) drug therapy; Z88.5 Allergy status to narcotic agent

== ENCOUNTER 2025-02-07 15:25 | Emergency (ER) | payer BC ==
[~2025-02-07] VITALS: Ht 185.4 cm; Wt 123.1 kg
[2025-02-07] MEDS ORDERED: CIPR500T39 (15:59)
[2025-02-07 17:26] LABS: BASO # 0.0 10^3/uL (0.0-0.2); BASO % 0.4 % (0.0-1.0); EOS # 0.1 10^3/uL (0.0-0.5); EOS % 1.0 % (0.0-3.0); LYMPH # 3.4 10^3/uL (1.5-5.0); LYMPH % 31.2 % (24.0-44.0); MONO # 0.9 10^3/uL (0.0-0.8); MONO % 8.3 % (2.0-8.0); NEUTROPHILS # 6.3 10^3/uL (1.5-8.5); NEUTROPHILS % 58.5 % (36.0-66.0); PLATELET COUNT, AUTOMATED 296 10^3/uL (150-450)
[2025-02-07 17:48] LABS: C REACTIVE PROTEIN QUANTITATIV < 0.50 MG/DL (<1.0)
[2025-02-07 17:49] LABS: ALT/SGPT 53 U/L (7.0-40); AST/SGOT 43 U/L (<34); CALCIUM LEVEL 8.9 MG/DL (8.5-10.1); CARBON DIOXIDE LEVEL 28 MMOL/L (20-31); CHLORIDE LEVEL 106 MMOL/L (98-107); CREATININE FOR GFR 0.95 MG/DL (0.70-1.30); GLOMERULAR FILTRATION RATE > 90.0 (>60); POTASSIUM SERUM 4.5 MMOL/L (3.5-5.1); SODIUM LEVEL 143 MMOL/L (136-145)
[2025-02-07 17:51] LABS: ERYTHROCYTE SEDIMENTATION RATE 11 mm/hr (0-15)
[2025-02-07] MEDS ORDERED: AMOX875T2 PO (20:35)
[2025-02-07] MEDS: AUGMENTIN 875 MG TAB PO ONE (20:47)
[2025-02-07 20:52] VITALS: BP 132/81; TEMP 97.2; O2SAT 96
== END 2025-02-07 20:57 | disposition home or self-care (01) ==
LOC: M ED 15:25
DX: H66.92 Otitis media, unspecified, left ear (principal); Z88.5 Allergy status to narcotic agent